=== PATIENT | female | born 1965 | race Caucasian/White ===

== ENCOUNTER 2017-11-18 14:59 | Day surgery (SDC) | payer SELFPAY ==
[~2017-11-18] VITALS: Ht 165.1 cm; Wt 62.1 kg
[~2017-11-18 14:59] MED LIST: CHOL10007 PO; CYAN500T2 PO; OMG1KC PO; PARO-49 PO
[2017-11-18] MEDS ORDERED: LACTATED RINGERS 1,000 ML IV ONE (15:19)
[2017-11-18] MEDS ORDERED: KETOROLAC 30 MG/ML VIAL IVP STA (15:19)
[2017-11-18 15:24] LABS: BASOPHILS % (AUTO) 0 % (0-10); EOSINOPHILS # (AUTO) 0.1 10^3/uL (0.0-0.3); EOSINOPHILS % (AUTO) 2 % (0-10); HEMATOCRIT 39 % (35-52); HEMOGLOBIN 13.6 G/DL (11.5-16.0); LYMPHOCYTES # (AUTO) 1.7 X 10^3 (1.0-4.0); LYMPHOCYTES % (AUTO) 24 % (12-44); MEAN CORPUSCULAR HEMOGLOBIN 32 PG (25-34); MEAN CORPUSCULAR HGB CONC 35 G/DL (32-36); MEAN CORPUSCULAR VOLUME 93 FL (80-99); MEAN PLATELET VOLUME 9.6 FL (7.4-10.4); MONOCYTES # (AUTO) 0.6 X 10^3 (0.0-1.0); MONOCYTES % (AUTO) 9 % (0-12); NEUTROPHILS # (AUTO) 4.6 X 10^3 (1.8-7.8); NEUTROPHILS % (AUTO) 66 % (42-75); PLATELET COUNT 219 10^3/uL (130-400); RED BLOOD COUNT 4.25 10^6/uL (4.35-5.85); RED CELL DISTRIBUTION WIDTH 13.7 % (10.0-14.5)
[2017-11-18 15:25] LABS: BILIRUBIN,URINE NEGATIVE (NEGATIVE); CLARITY,URINE CLEAR; COLOR,URINE YELLOW; GLUCOSE, URINE (UA) NEGATIVE (NEGATIVE); KETONES,URINE NEGATIVE (NEGATIVE); LEUKOCYTE ESTERASE ,URINE NEGATIVE (NEGATIVE); NITRITE,URINE NEGATIVE (NEGATIVE); PH,URINE 5 (5-9); PROTEIN,URINE NEGATIVE (NEGATIVE); UROBILINOGEN,URINE NORMAL (NORMAL)
[2017-11-18] MEDS ORDERED: IOHEXOL 350 MG/ML 100 ML (OMNIPAQUE 350) VIAL IV ONE (15:30)
[2017-11-18] MEDS ORDERED: NS 100 ML (IVPB) BAG IV ONE (15:30)
--- NOTE | 2017-11-18 15:30 | ED Abdominal Pain ---
General Chief Complaint: Abdominal/GI Problems Stated Complaint: RT SIDED ABD PAIN, BLOATING Nursing Triage Note: PATIENT HERE FOR COMPLAINTS OF ABDOMINAL PAIN THAT STARTED SUDDENLY YESTERDAY AFTERNOON. IT IS LOCATED SPECIFICALLY ON THE RLQ. PATIENT COMPLAINS OF FEELING BLOATED BUT NOT DIARRHEA, N/V. NO FEVERS. SHE HAS HX OF DIVERTICULITIS AND STILL HAS HER APPENDIX. Sepsis Screen: No Definite Risk Source of Information: Patient Exam Limitations: No Limitations History of Present Illness Date Seen by Provider: Nov 18, 2017 Time Seen by Provider: 15:05 Initial Comments PT ARRIVES VIA POV FROM HOME C/O RLQ PAIN SINCE YESTERDAY PAIN IS CONSTANT AND IS WORSE WITH WALKING, LAYING ON RIGHT SIDE OR TO TOUCH STATES ABDOMEN FEELS BLOATED NO RADIATION OF PAIN NO NAUSEA/VOMITING/DIARRHEA/CONSTIPATION NO FEVER NO URINARY SYMPTOMS NO HISTORY OF SIMILAR LAST FOOD INTAKE WAS OATMEAL THIS MORNING PCP: DR. Cachorro CARTER Allergies and Home Medications Allergies Coded Allergies: No Known Drug Allergies (Unverified , 04/09/15) Home Medications Fluoxetine HCl 20 Mg Capsule, 20 MG PO DAILY Prescribed by: LEVY WELLINGTON on 11/18/171807 [i] , DAILY Prescribed by: LEVY WELLINGTON on 11/18/171810 Patient Home Medication List Home Medication List Reviewed: Yes Review of Systems Constitutional: no symptoms reported EENTM: No Symptoms Reported Respiratory: No Symptoms Reported Cardiovascular: No Symptoms Reported Gastrointestinal: See HPI, Abdominal Pain; Denies Constipated, Denies Diarrhea , Denies Nausea, Denies Vomiting Genitourinary: No Symptoms Reported Musculoskeletal: no symptoms reported Skin: no symptoms reported Psychiatric/Neurological: No Symptoms Reported Endocrine: No Symptoms Reported Hematologic/Lymphatic: No Symptoms Reported Past Scujyxd-Vnhbuq-Tmomlt Hx Patient Social History Alcohol Use: Regular Use (IN PAST, NOW CLAIMS "OCCASIONAL" USE--HEAVY AT TIMES- -PER PT ON 11/18/17) Recreational Drug Use: No Smoking Status: Current Someday Smoker (SMOKED 1/2 PPD, NOW DOES NOT SMOKE EVERY DAY) Type Used: Cigarettes Former Smoker, Quit: Jun 23, 2015 2nd Hand Smoke Exposure: Yes Recent Foreign Travel: No Contact w/Someone Who Travel: No Recent Infectious Disease Expo: No Immunizations Up To Date Tetanus Booster (TDap): Unknown Past Medical History Surgeries: Yes (BREAST AUGMENTATION; HYST/BSO; COLONOSCOPY) Adenoidectomy, Breast, Hysterectomy, Oophorectomy, Tonsillectomy Respiratory: Yes Pneumonia, COPD Currently Using CPAP: No Currently Using BIPAP: No Cardiac: No Neurological: Yes ("sjogren's disease"=---SELF DIAGNOSIS) 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 Genitourinary: No Gastrointestinal: Yes (DIVERTICULOSIS FOUND ON SCREENING COLONOSCOPY--HAS NEVER HAD ACUTE DIVERTICULITIS) Diverticulosis Musculoskeletal: No Endocrine: Yes ("autoimmune disease"--SELF DIAGNOSIS) Cancer: No Psychosocial: Yes Anxiety, Suicide Attempts, Depression Integumentary: No Blood Disorders: No Family Medical History Cardiovascular disease 19 FATHER (a-fib, chf) Diabetes mellitus 19 FATHER (obesity) Hypertension 19 FATHER Physical Exam Vital Signs Vital Signs - First Documented 11/18/17 15:05 Temp 97.6 Pulse 73 Resp 18 B/P (MAP) 100/76 (84) Pulse Ox 97 Capillary Refill : Less Than 3 Seconds Height/Weight/BMI Height: 5'5.00" Weight: 130lbs. 0oz. 58.121770di; 22.5 BMI Method:Stated General Appearance: WD/WN, no apparent distress, other (FULL/HEAVY MAKEUP AND PERFUME; WALKS UPRIGHT WITHOUT DIFFICULTY) Neck: normal inspection Respiratory: normal breath sounds, no respiratory distress, no accessory muscle use Cardiovascular: regular rate, rhythm, no edema, no JVD, no murmur Gastrointestinal: normal bowel sounds, soft, no organomegaly, no pulsatile mass ; No distended; guarding (MILD/RLQ), rebound (EQUIVOCAL), tenderness (RLQ); No hernia, No mass; other (+ PSOAS, NEGATIVE HEEL TAP, NEGATIVE ROVSING'S, EQUIVOCAL OBTURATOR) Extremities: normal inspection, normal capillary refill Back: normal inspection, no CVA tenderness Neurologic/Psychiatric: tile setter II-XII nml as tested, no motor/sensory deficits, alert, normal mood/affect, oriented x 3 Skin: normal color, warm/dry, tattoos/piercings Procedures/Interventions Suture Size: 6-0 Progress/Results/Core Measures Results/Orders Lab Results Laboratory Tests Test 11/18/17 15:15 Range/Units White Blood Count 7.0 4.3-11.0 10^3/uL Red Blood Count 4.25 L 4.35-5.85 10^6/uL Hemoglobin 13.6 11.5-16.0 G/DL Hematocrit 39 35-52 % Mean Corpuscular Volume 93 80-99 FL Mean Corpuscular Hemoglobin 32 25-34 PG Mean Corpuscular Hemoglobin Concent 35 32-36 G/DL Red Cell Distribution Width 13.7 10.0-14.5 % Platelet Count 219 130-400 10^3/uL Mean Platelet Volume 9.6 7.4-10.4 FL Neutrophils (%) (Auto) 66 42-75 % Lymphocytes (%) (Auto) 24 12-44 % Monocytes (%) (Auto) 9 0-12 % Eosinophils (%) (Auto) 2 0-10 % Basophils (%) (Auto) 0 0-10 % Neutrophils # (Auto) 4.6 1.8-7.8 X 10^3 Lymphocytes # (Auto) 1.7 1.0-4.0 X 10^3 Monocytes # (Auto) 0.6 0.0-1.0 X 10^3 Eosinophils # (Auto) 0.1 0.0-0.3 10^3/uL Basophils # (Auto) 0.0 0.0-0.1 10^3/uL Urine Color YELLOW Urine Clarity CLEAR Urine pH 5 5-9 Urine Specific [place] 1.020 1.016-1.022 Urine Protein NEGATIVE NEGATIVE Urine Glucose (UA) NEGATIVE NEGATIVE Urine Ketones NEGATIVE NEGATIVE Urine Nitrite NEGATIVE NEGATIVE Urine Bilirubin NEGATIVE NEGATIVE Urine Urobilinogen NORMAL NORMAL MG/DL Urine Leukocyte Esterase NEGATIVE NEGATIVE Urine RBC (Auto) NEGATIVE NEGATIVE Urine RBC NONE /HPF Urine WBC NONE /HPF Urine Squamous Epithelial Cells RARE /HPF Urine Crystals NONE /LPF Urine Bacteria NEGATIVE /HPF Urine Casts NONE /LPF Urine Mucus NEGATIVE /LPF Urine Culture Indicated NO Sodium Level 139 135-145 MMOL/L Potassium Level 4.2 3.6-5.0 MMOL/L Chloride Level 104 98-107 MMOL/L Carbon Dioxide Level 26 21-32 MMOL/L Anion Gap 9 5-14 MMOL/L Blood Urea Nitrogen 23 H 7-18 MG/DL Creatinine 0.79 0.60-1.30 MG/DL Estimat Glomerular Filtration Rate > 60 BUN/Creatinine Ratio 29 Glucose Level 99 70-105 MG/DL Calcium Level 9.4 8.5-10.1 MG/DL Total Bilirubin 0.3 0.1-1.0 MG/DL Aspartate Amino Transf (AST/SGOT) 19 5-34 U/L Alanine Aminotransferase (ALT/SGPT) 16 0-55 U/L Alkaline Phosphatase 75 40-136 U/L Total Protein 7.1 6.4-8.2 GM/DL Albumin 4.4 3.2-4.5 GM/DL Amylase Level 75 25-125 U/L Lipase 44 8-78 U/L Urine Opiates Screen NEGATIVE NEGATIVE Urine Oxycodone Screen NEGATIVE NEGATIVE Urine Methadone Screen NEGATIVE NEGATIVE Urine Propoxyphene Screen NEGATIVE NEGATIVE Urine Barbiturates Screen NEGATIVE NEGATIVE Ur Tricyclic Antidepressants Screen NEGATIVE NEGATIVE Urine Phencyclidine Screen NEGATIVE NEGATIVE Urine Amphetamines Screen NEGATIVE NEGATIVE Urine Methamphetamines Screen NEGATIVE NEGATIVE Urine Benzodiazepines Screen NEGATIVE NEGATIVE Urine Cocaine Screen NEGATIVE NEGATIVE Urine Cannabinoids Screen NEGATIVE NEGATIVE Serum Alcohol < 10 <10 MG/DL My Orders Orders - DODIE SILVA DO Saline Lock/Iv-Start (11/18/17 15:06) Amylase (11/18/17 15:06) Cbc With Automated Diff (11/18/17 15:06) Comprehensive Metabolic Panel (11/18/17 15:06) Lipase (11/18/17 15:06) Ua Culture If Indicated (11/18/17 15:06) Alcohol (11/18/17 15:19) Drug Screen Stat (Urine) (11/18/17 15:19) Ct Abd/Pelv W (Appendicitis) (11/18/17 15:19) Abdomen, Flat & Upright/Decub (11/18/17 15:19) Saline Lock/Iv-Start (11/18/17 15:19) Lactated Ringers (Lr 1000 Ml Iv Solution (11/18/17 15:19) Ketorolac Injection (Toradol Injection) (11/18/17 15:19) Iohexol Injection (Omnipaque 350 Mg/Ml 1 (11/18/17 15:30) Ns (Ivpb) (Sodium Chloride 0.9% Ivpb Bag (11/18/17 15:30) Medications Given in ED Current Medications Medications Dose Ordered Sig/Marine Route Start Time Stop Time Status Last Admin Dose Admin Iohexol 100 ml ONCE ONCE IV 11/18/17 15:30 11/18/17 15:33 DC 11/18/17 15:54 100 ML Lactated Ringer's 1,000 ml @ 0 mls/hr Q0M ONCE IV 11/18/17 15:19 11/18/17 15:22 DC 11/18/17 15:30 0 MLS/HR Sodium Chloride 100 ml ONCE ONCE IV 11/18/17 15:30 11/18/17 15:33 DC 11/18/17 15:54 100 ML Vital Signs/I&O 11/18/17 15:05 Temp 97.6 Pulse 73 Resp 18 B/P (MAP) 100/76 (84) Pulse Ox 97 Blood Pressure Mean: 84 Progress Progress Note : Progress Note MINIMAL IMPROVEMENT IN PAIN WITH TORADOL MODERATE IMPROVEMENT WITH FENTANYL NO DETERIORATION IN PT'S CONDITION DURING ER STAY Diagnostic Imaging Comments ABDOMEN XRAYS--NO ACUTE PROCESS CT ABDOMEN/PELVIS--INFLAMMATORY CHANGES IN AREA OF CECUM, APPENDIX WITHOUT GROSS WALL THICKENING, CONSTIPATION PER RADIOLOGIST REPORTS AT 1625 Reviewed: Reviewed by Me Departure Communication (Admissions) Family Conversation 1628--SPOKE WITH DR. GARCIA, ACCEPTS PT FOR ADMIT. ADVISES IV CIPRO + FLAGYL. AND HE WILL TAKE TO SURGERY TOMORROW AT 10 AM Impression Primary Impression: Appendicitis Disposition: 09 ADMITTED INPATIENT Condition: Stable Admissions Decision to Admit Reason: Admit from ER (General) Decision to Admit/Date: Nov 18, 2017 Time/Decision to Admit Time: 16:30 Departure-Patient Inst. Referrals: DODIE CARTER MD (PCP/Family) Primary Care Physician Scripts [Mvi] No Conflict Check DAILY for 30 Days Prov: MARILU GARCIA MD 11/18/17 Fluoxetine HCl (Prozac) 20 Mg Capsule 20 MG PO DAILY, #30 CAP Prov: MARILU GARCIA MD 11/18/17 DODIE SILVA DO Nov 18, 2017 15:30
[2017-11-18 15:32] LABS: BACTERIA,URINE NEGATIVE /HPF; SQUAMOUS EPITHELIAL CELL,UR RARE /HPF
[2017-11-18 15:40] LABS: AMPHETAMINE SCREEN, URINE NEGATIVE (NEGATIVE); BARBITURATE SCREEN URINE NEGATIVE (NEGATIVE); BENZODIAZEPINES SCREEN URINE NEGATIVE (NEGATIVE); CANNABINOID SCREEN, URINE NEGATIVE (NEGATIVE); COCAINE SCREEN URINE NEGATIVE (NEGATIVE); METHADONE STAT NEGATIVE (NEGATIVE); METHAMPHETAMINE SCREEN URINE S NEGATIVE (NEGATIVE); OPIATE SCREEN URINE NEGATIVE (NEGATIVE); OXYCODONE STAT NEGATIVE (NEGATIVE); PROPOXYPHENE STAT NEGATIVE (NEGATIVE); TRICYCLIC ANTIDEPRESSANTS SCRE NEGATIVE (NEGATIVE)
[2017-11-18 15:45] LABS: ALANINE AMINOTRANSFERASE 16 U/L (0-55); ALBUMIN 4.4 GM/DL (3.2-4.5); ALKALINE PHOSPHATASE 75 U/L (40-136); AMYLASE 75 U/L (25-125); BILIRUBIN,TOTAL 0.3 MG/DL (0.1-1.0); BUN/CREATININE RATIO 29; CALCIUM 9.4 MG/DL (8.5-10.1); CARBON DIOXIDE 26 MMOL/L (21-32); CHLORIDE 104 MMOL/L (98-107); CREATININE SERUM 0.79 MG/DL (0.60-1.30); GFR ESTIMATED > 60; GLUCOSE 99 MG/DL (70-105); LIPASE 44 U/L (8-78); POTASSIUM 4.2 MMOL/L (3.6-5.0); SODIUM 139 MMOL/L (135-145); TOTAL PROTEIN 7.1 GM/DL (6.4-8.2)
--- NOTE | 2017-11-18 16:22 | Diagnostic Imaging Report ---
PROCEDURE: CT abdomen and pelvis with contrast, rule out appendicitis. TECHNIQUE: Multiple contiguous axial images were obtained through the abdomen and pelvis after the administration of intravenous contrast. INDICATION: Right lower quadrant pain and bloating. COMPARISON: No prior studies are available for comparison. FINDINGS: The lung bases are clear. Liver contains small low densities, suggestive of cysts. The largest is in the right lobe posteriorly, measuring 13 mm. Gallbladder is unremarkable. Pancreas and spleen are unremarkable. No adrenal mass is identified. There is a large cyst in the lower pole left kidney, measuring 5.9 cm. Aorta is non-aneurysmal. There is a large amount of stool throughout the colon suggestive of constipation. There do appear to be some inflammatory changes in the right lower quadrant in the region of the cecum. The appendix, itself, does not appear to be appreciably thick walled. Bowel loops are fluid-filled but no definite obstruction is seen. There is no free fluid or fluid collection in the abdomen. Bladder is unremarkable. IMPRESSION: 1. Hepatic and renal cysts. 2. Moderate stool in the colon consistent with constipation. 3. There does appear to be some mild inflammatory changes involving the right lower quadrant adjacent to the descending colon and cecum. The appendix does not appear to be appreciably thickwalled or dilated. Features may be secondary to nonspecific colitis. No definite bowel obstruction, free air or abscess is seen. Dictated by: Dictated on workstation # [id number]
[2017-11-18] MEDS ORDERED: fentaNYL INJECTION 100 MCG/2 ML AMP IVP STA (16:34)
--- NOTE | 2017-11-18 16:38 | Diagnostic Imaging Report ---
INDICATION: Right lower quadrant pain. TIME OF EXAM: 4:34 p.m. FINDINGS: Contrast is seen within both renal collection systems and ureters. Bowel gas pattern is nonobstructive. There is a large stool load consistent with constipation. No definite free air is seen. IMPRESSION: Constipation. No other abnormality seen. Dictated by: Dictated on workstation # [id number]
[2017-11-18] MEDS ORDERED: metroNIDAZOLE 500MG/100ML IVPB 100 ML IV ONE (16:45)
--- NOTE | 2017-11-18 17:02 | Progress Note-Pre Operative ---
Pre-Operative Progress Note H&P Reviewed The H&P was reviewed, patient examined and no changes noted. Date Seen by Provider: Nov 18, 2017 Time Seen by Provider: 17:00 Date H&P Reviewed: Nov 18, 2017 Time H&P Reviewed: 17:00 Pre-Operative Diagnosis: right lower quadrant pain r/o appendicitis MARILU GARCIA MD Nov 18, 2017 5:02 pm
[2017-11-18 17:20] VITALS: BP 109/86
[2017-11-18] MEDS ORDERED: FLUO20CA42 PO (18:08)
[2017-11-18] MEDS ORDERED: MVI (18:11)
[2017-11-18] MEDS ORDERED: ASPI325T32 PO (18:12)
[2017-11-18] MEDS ORDERED: fentaNYL INJECTION 100 MCG/2 ML AMP IVP PRN (18:15)
[2017-11-18] MEDS: CIPROFLOXACIN IV 400MG/200ML 200 ML IV SCH ×3 (18:17→20:51)
[2017-11-18] MEDS: D5 1/2 NS W/KCL 20 MEQ/L 1,000 ML IV SCH (18:17)
[2017-11-18 19:38] VITALS: BP 105/68
[2017-11-18] MEDS: metroNIDAZOLE 500MG/100ML IVPB 100 ML IV SCH ×3 (20:50→23:55)
[2017-11-18] MEDS ORDERED: ONDANSETRON 4 MG/2 ML (SDV) Z0FRAN IV PRN (21:00)
[2017-11-19] VITALS: BP 81/42
[2017-11-19] MEDS: metroNIDAZOLE 500MG/100ML IVPB 100 ML IV SCH ×2 (00:53→06:34)
[2017-11-19 04:00] VITALS: BP 91/53
[2017-11-19] MEDS: D5 1/2 NS W/KCL 20 MEQ/L 1,000 ML IV SCH (04:28)
[2017-11-19 08:00] VITALS: BP 106/57
[2017-11-19 08:30] VITALS: BP 106/57
[2017-11-19] MEDS: CIPROFLOXACIN IV 400MG/200ML 200 ML IV SCH ×2 (08:57→09:55)
[2017-11-19] MEDS ORDERED: BUP/EPI 0.5% 1:200,000 (SENSORCAINE) 30 ML VIAL ONE (09:31)
[2017-11-19] MEDS ORDERED: MIDAZOLAM 2 MG/2 ML (VERSED) VIAL ONE (09:45)
[2017-11-19] MEDS ORDERED: fentaNYL INJECTION 100 MCG/2 ML AMP ONE (09:45)
[2017-11-19] MEDS: LACTATED RINGERS 1,000 ML IV SCH ×2 (09:55→10:45)
[2017-11-19] MEDS ORDERED: morphine INJ 10 MG/ML 1ML (SYR OR VIAL) ONE (10:47)
[2017-11-19] MEDS ORDERED: ROCURONIUM 10 MG/ML 5 ML SYRINGE IV ONE (11:11)
[2017-11-19] MEDS ORDERED: proPOfol 200 MG/20 ML (DIPRIVAN) VIAL IV ONE (11:11)
[2017-11-19] MEDS ORDERED: LIDOCAINE PF 2% 5 ML (XYLOCAINE) VIAL ONE (11:11)
[2017-11-19] MEDS ORDERED: DEXAMETHASONE 10 MG/ML (DECADRON) 1 ML VIAL ONE (11:12)
[2017-11-19] MEDS ORDERED: ONDANSETRON 4 MG/2 ML (SDV) Z0FRAN ONE (11:12)
--- NOTE | 2017-11-19 11:12 | Progress Note-Post Operative ---
Post-Operative Progess Note Surgeon (s)/Housekeeper (s) Surgeon MARILU GARCIA MD Housekeeper: kathy olson AIRCRAFT SYSTEMS REPAIRER Pre-Operative Diagnosis right lower quadrant pain r/o appendicitis Post-Operative Diagnosis acute appendicitis. Procedure & Operative Findings Date of Procedure 11/19/17 Procedure Performed/Findings laparoscopic appendectomy Anesthesia Type GET Estimated Blood Loss Estimated blood loss (mL): minimal Specimens/Packing Specimens Removed appendix MARILU GARCIA MD Nov 19, 2017 11:12 am
[2017-11-19] MEDS ORDERED: SEVOFLURANE (ULTANE) 15 ML INHAL SOLN ONE ×5 (11:13→11:25)
[2017-11-19] MEDS ORDERED: HYDR-34 PO (11:15)
--- NOTE | 2017-11-19 11:18 | Discharge Inst-Surgical ---
D/C Lap Instructions-RADHA New, Converted, or Re-Newed RX: RX on Chart Follow Up Appt in 2 weeks Activity as tolerated No driving for 24 hours No driving while on pain medications Incentive Spirometry use every 2 hours while awake Regular Diet Symptoms to Report: Fever over 101 degree F, Nausea/Vomiting Infection Signs and Symptoms to report: Increased redness, Foul odor of wound, Increased drainage Bathing instructions: May shower Operative Area Clean/Dry; Keep incision clean/dry If any problems/questions: Contact your physician or go to Emergency Room MARILU GARCIA MD Nov 19, 2017 11:18 am
--- NOTE | 2017-11-19 11:22 | HISTORY AND PHYSICAL ---
DATE OF SERVICE: ATTENDING PRIMARY CARE PHYSICIAN: Ursula Horton MD. HISTORY OF PRESENT ILLNESS: The patient is a 52 female who presented to the Emergency Department with pain more in the right lower abdominal quadrant. She reports that this came on suddenly and this was not associated with nausea. No vomiting, no fever, no chills. She has had a history of diverticulosis as well as mild diverticulitis in the past; however, these symptoms were different and in a different location. A CT scan was performed, which did show stool within the colon; however, there did appear to be a small amount of inflammation near the appendix consistent with an early appendicitis. PAST MEDICAL HISTORY: Depression. PAST SURGICAL HISTORY: Total hysterectomy, tonsillectomy, breast augmentation. ALLERGIES: No known drug allergies. MEDICATIONS: Fluoxetine 20 mg daily. SOCIAL HISTORY: Social alcohol, social smoking. REVIEW OF SYSTEMS: Well-nourished female currently in no acute distress. She is not experiencing any shortness of breath or difficulty breathing. No chest pain, palpitations, diaphoresis. No nausea, vomiting, history of constipation, no red blood per rectum, no dark tarry stools. No fever, chills. No recent inadvertent weight loss. All other review of systems negative. PHYSICAL EXAMINATION: VITAL SIGNS: Temperature 97.6, blood pressure 100/76, pulse 73, respirations 18, pulse ox 97% on room air. CHEST: Clear. Good breath sounds bilaterally. HEART: Regular. No murmurs. HEENT: No scleral icterus. NECK: No cervical lymphadenopathy. ABDOMEN: Soft, nondistended. There is pain in the right lower abdominal quadrant at McBurney's point upon palpation with voluntary guarding, no rebound. SKIN: Warm, dry. ASSESSMENT AND PLAN: A 52-year-old female with early acute appendicitis. We will proceed with IV hydration, IV antibiotics as well as diagnostic laparoscopy and laparoscopic appendectomy. Job ID: [id number] DocumentID: [id number] Dictated Date: 11/19/2017 10:36:15 Camera Technician Date: 11/19/2017 11:22:04 Dictated By: MARILU GARCIA MD
[2017-11-19] MEDS: morphine INJ 10 MG/ML 1ML (SYR OR VIAL) IVP PRN ×3 (11:41→11:57)
[2017-11-19] MEDS ORDERED: KETOROLAC 30 MG/ML VIAL ONE (11:41)
[2017-11-19] MEDS ORDERED: HYDROcodone/APAP 7.5 MG/325 MG (LORTAB, LORCET PLUS) TABLET PO PRN (11:45)
[2017-11-19] MEDS ORDERED: ONDANSETRON 4 MG/2 ML (SDV) Z0FRAN IVP PRN (12:00)
[2017-11-19] MEDS ORDERED: HYDROmorphone 1 MG/ML (DILAUDID) 1 ML SYRINGE IV PRN (12:00)
[2017-11-19 12:39] VITALS: BP 107/63
[2017-11-19 15:39] VITALS: BP 107/63
--- NOTE | 2017-11-19 15:57 | OPERATIVE REPORT ---
DATE OF SERVICE: 11/19/2017 ATTENDING PRIMARY CARE PHYSICIAN: Ursula Horton MD PREOPERATIVE DIAGNOSIS: Acute appendicitis. POSTOPERATIVE DIAGNOSIS: Acute appendicitis. PROCEDURE: Laparoscopic appendectomy. SURGEON: Marilu Garcia MD FIRER GLOST KILN: Khanh Colin APRN ANESTHESIA: General endotracheal. ESTIMATED BLOOD LOSS: Minimal. FINDINGS: Inflammation of the appendix with no perforation. Gallbladder and liver appeared normal. DISPOSITION: The patient tolerated the procedure well. INDICATIONS: The patient is a 52-year-old female, who presented to the Emergency Department with pain of acute onset in the right lower abdominal quadrant. She has had some abdominal discomfort before in the past related to a mild episode of diverticulitis; however, this pain was different and more severe in nature. She did not report any nausea, no vomiting or fever or chills. A CT scan was performed, which did not visualize the appendix well; however, she did have inflammatory stranding in the region at the base of the cecum, most likely consistent with an early appendicitis. DESCRIPTION OF PROCEDURE: The patient was brought to the operating room, laid supine on the table. After adequate IV pain and sedative medications and general endotracheal intubation, the abdomen was prepped and draped in standard surgical fashion. A 0.5% Marcaine with epinephrine was used to anesthetize the overlying skin in the left upper abdominal quadrant and a transverse skin incision made using a 15 blade. An 0 silk suture was applied to the medial aspect of the incision for retraction and a Veress needle inserted with a low opening pressure of 0 mmHg and the abdomen was then insufflated at 15 mmHg pressure. The Veress needle removed and a 5 mm XL trocar placed followed by a 5 mm 45 degree angle laparoscope visualizing the peritoneal cavity. A 4-quadrant abdominal exploration was performed. The liver and gallbladder appeared normal. The uterus and ovaries were surgically absent. The appendix was slightly inflamed with increased turgor pressure; however, no perforation. Under direct visualization, we then proceeded to place a supraumbilical 10 mm port after the skin and peritoneal lining were anesthetized using 0.5% Marcaine with epinephrine and a transverse skin incision made using a 15 blade. In a similar manner, a suprapubic 5 mm port was placed. The patient was then placed in Trendelenburg position. The appendix was then retracted towards the anterior abdominal wall and a window was then created at the base of the appendix and the mesoappendix using a [place] dissector. The gallbladder was then stapled and transected with a TAVIA 45 mm stapler with a 2.5 mm thickness load. The mesoappendix was then stapled and transected with the same stapler with a 2.0 mm thickness reload. Good hemostasis was observed. The appendix was removed through the 10 mm port site using an EndoCatch bag. The 10 mm port site fascia and peritoneum were then closed under direct visualization using a Joey-Frida device and 0 Vicryl suture. The abdomen was desufflated and remaining ports removed. All skin incisions were closed using 4-0 Monocryl running subcuticular sutures. Wounds were then cleaned and covered with Dermabond. The patient tolerated the procedure well. We will admit her back to the floor and start clear liquid diet and advance as well as IV and oral pain medication. Once she is tolerating clears, has good pain control with oral pain medications and ambulating well, we will discharge her home. Job ID: [id number] DocumentID: [id number] Dictated Date: 11/19/2017 11:37:20 Migrant Leader Date: 11/19/2017 15:56:18 Dictated By: MARILU GARCIA MD
--- NOTE | 2017-11-20 12:11 | Anesthesia-General Post-Op ---
General Patient Condition Mental Status/LOC: Same as Preop Cardiovascular: Satisfactory Nausea/Vomiting: Absent Respiratory: Satisfactory Pain: Controlled Complications: Absent Post Op Complications Complications None Follow Up Care/Instructions Patient Instructions None needed. Anesthesia/Patient Condition Patient Condition Patient is doing well, no complaints, stable vital signs, no apparent adverse anesthesia problems. No complications reported per nursing. MAGGI FLETCHER CRNA Nov 20, 2017 12:11
--- NOTE | 2017-11-22 11:51 | Physician Query-Final Dx ---
HIRO RODRIGUES 11/22/17 1151: Final Diagnosis Give Final Diagnosis Please give Final Diagnosis MARILU GARCIA MD 11/22/17 1602: Final Diagnosis Give Final Diagnosis acute appendicitis HIRO RODRIGUES Nov 22, 2017 11:51 MARILU GARCIA MD Nov 22, 2017 16:02
== END 2017-11-19 15:35 | disposition home or self-care (01) ==
LOC: EDUNIT# 14:59 → ER 15:01 → UNDOADMIN 16:28 → SDC 16:28 → 4TH 16:28 → SDC 11-19 15:35 → UNDODISIN 11-19 15:35
PROVIDERS: ATTEND Surgery
DX: K35.80 Unspecified acute appendicitis (principal); J44.9 Chronic obstructive pulmonary disease, unspecified; F32.9 Major depressive disorder, single episode, unspecified; F17.210 Nicotine dependence, cigarettes, uncomplicated; Z79.82 Long term (current) use of aspirin; Z79.899 Other long term (current) drug therapy
CPT/HCPCS: 36415; 74019; 74177; 80053; 80306; 80320; 81000; 82150; 83690; 85025; 87081; 94664; 96374; 96375

== ENCOUNTER 2018-07-09 09:42 | Emergency (ER) | payer SELFPAY ==
[~2018-07-09] VITALS: Ht 165.1 cm; Wt 61.2 kg
[~2018-07-09 09:42] MED LIST changes: +ASPI325T32 PO; +FLUO20CA42 PO; +HYDR-34 PO; +MVI
[2018-07-09 09:45] VITALS: BP 132/82
[2018-07-09 10:00] LABS: BASOPHILS % (AUTO) 1 % (0-10); EOSINOPHILS # (AUTO) 0.1 10^3/uL (0.0-0.3); EOSINOPHILS % (AUTO) 2 % (0-10); HEMATOCRIT 44 % (35-52); HEMOGLOBIN 14.5 G/DL (11.5-16.0); LYMPHOCYTES # (AUTO) 1.2 X 10^3 (1.0-4.0); LYMPHOCYTES % (AUTO) 24 % (12-44); MEAN CORPUSCULAR HEMOGLOBIN 31 PG (25-34); MEAN CORPUSCULAR HGB CONC 33 G/DL (32-36); MEAN CORPUSCULAR VOLUME 94 FL (80-99); MEAN PLATELET VOLUME 9.6 FL (7.4-10.4); MONOCYTES # (AUTO) 0.4 X 10^3 (0.0-1.0); MONOCYTES % (AUTO) 7 % (0-12); NEUTROPHILS # (AUTO) 3.3 X 10^3 (1.8-7.8); NEUTROPHILS % (AUTO) 66 % (42-75); PLATELET COUNT 234 10^3/uL (130-400); RED CELL DISTRIBUTION WIDTH 13.9 % (10.0-14.5); WHITE BLOOD COUNT 4.9 10^3/uL (4.3-11.0)
[2018-07-09] MEDS ORDERED: ASPIRIN 81 MG CHEW (CHILDREN'S ASA) PO ONE (10:00)
[2018-07-09] MEDS ORDERED: NITROGLYCERIN 0.4 MG SL TABS BTL 25'S SL PRN (10:00)
--- OUTSIDE RECORDS SUMMARY | 2018-07-09 10:13 | XMS REPORT ---
Author SKY Aquino [facility] eClinicalWorks Address Unknown Phone Unavailable Care Team Providers Care Auto Service Advisor Name Role Phone SKY ALICIA CP Unavailable Allergies, Adverse Reactions, Alerts Substance Reaction Event Type PredniSONE Headaches, Angry and Increased Appetite Drug Allergy Problems Problem Type Condition Code Onset Dates Condition Status Problem Previous known suicide attempt Z91.5 Active Assessment Pain in joints of right hand M25.541 Active Problem Dry eye H04.129 Active Assessment Alopecia L65.9 Active Assessment Dry eye H04.129 Active Assessment Pain in joints of left hand M25.542 Active Assessment Dry mouth R68.2 Active Medications No Known Medications Procedures Procedure Coding System Code Date COMPLETE CBC W/AUTO DIFF WBC CPT-4 43446 Feb 18, 2016 RBC SED RATE, AUTOMATED CPT-4 39393 Feb 18, 2016 ASSAY THYROID STIM HORMONE CPT-4 67102 Feb 18, 2016 Office Visit, New Pt., Level 3 CPT-4 68887 Feb 18, 2016 VENIPUNCT, ROUTINE* CPT-4 65287 Feb 18, 2016 MICROALBUMIN, QUANTITATIVE CPT-4 91425 Feb 18, 2016 ASSAY OF URINE CREATININE CPT-4 42136 Feb 18, 2016 COMPREHEN METABOLIC PANEL CPT-4 72606 Feb 18, 2016 ANTINUCLEAR ANTIBODIES CPT-4 14997 Feb 18, 2016 Vital Signs Date/Time: Feb 18, 2016 Cardiac Monitoring Heart Rate 70 bpm Weight 133 lbs Height 65 in BMI 22.13 Index Blood Pressure Diastolic 70 mmHg Blood Pressure Systolic 100 mmHg Results Name Result Date Reference Range Unit Abnormality Flag CBC ----Lymphs 17 72257410 % ----Neutrophils 75 50215972 % ----Baso (Absolute) 0.0 [id number] 0.0-0.2 x10E3/uL ----Hemoglobin 13.8 24385500 11.1-15.9 g/dL ----Eos (Absolute) 0.1 [id number] 0.0-0.4 x10E3/uL ----Hematocrit 39.8 67913181 34.0-46.6 % ----Monocytes(Absolute) 0.4 81588672 0.1-0.9 x10E3/uL ----MCV 91 [id number] 79-97 fL ----Lymphs (Absolute) 1.3 [id number] 0.7-3.1 x10E3/uL ----MCH 31.5 [id number] 26.6-33.0 pg ----Neutrophils (Absolute) 5.6 57906458 1.4-7.0 x10E3/uL ----MCHC 34.7 93773784 31.5-35.7 g/dL ----Immature Granulocytes 0 55262982 % ----Basos 0 46016412 % ----RDW 13.5 35744921 12.3-15.4 % ----Immature Grans (Abs) 0.0 [id number] 0.0-0.1 x10E3/uL ----WBC 7.5 12548211 3.4-10.8 x10E3/uL ----Platelets 221 88389284 150-379 x10E3/uL ----Eos 2 72036746 % ----RBC 4.38 [id number] 3.77-5.28 x10E6/uL ----Monocytes 6 05538771 % ESR/SED RATE ----Sedimentation Rate-Westergren 5 [id number] 0-40 mm/hr ROUTINE VENIPUNCTURE TSH ----TSH 1.190 [id number] 0.450-4.500 uIU/mL VINICIO ----Antinuclear Antibodies, IFA Negative [id number] CMP ----Creatinine, Serum 0.83 13796951 0.57-1.00 mg/dL ----BUN 14 82408706 6-24 mg/dL ----eGFR If Africn Am 94 [id number] >59 mL/min/1.73 ----eGFR If NonAfricn Am 82 17353773 >59 mL/min/1.73 ----Sodium, Serum 141 65579947 134-144 mmol/L ----BUN/Creatinine Ratio 17 12600458 9-23 ----Chloride, Serum 100 39535666 97-108 mmol/L ----Potassium, Serum 4.3 59525615 3.5-5.2 mmol/L ----Carbon Dioxide, Total 27 95021772 18-29 mmol/L ----Protein, Total, Serum 6.4 91767074 6.0-8.5 g/dL ----Calcium, Serum 9.2 68045181 8.7-10.2 mg/dL ----Globulin, Total 2.1 55470155 1.5-4.5 g/dL ----Albumin, Serum 4.3 95407601 3.5-5.5 g/dL ----Bilirubin, Total 0.4 78032327 0.0-1.2 mg/dL ----Glucose, Serum 92 27026147 65-99 mg/dL ----A/G Ratio 2.0 [id number] 1.1-2.5 ----ALT (SGPT) 12 70781326 0-32 IU/L ----Alkaline Phosphatase, S 71 86794699 39-117 IU/L ----AST (SGOT) 17 [id number] 0-40 IU/L Summary Purpose eClinicalWorks Submission
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
[2018-07-09 10:14] LABS: INR 0.8 (0.8-1.4); PROTHROMBIN TIME PATIENT 11.4 SEC (12.2-14.7)
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
--- OUTSIDE RECORDS SUMMARY | 2018-07-09 10:14 | XMS REPORT ---
Author SKY Aquino Organization [employer] Address Unknown Phone Unavailable Care Team Providers Care Seo Assistant Name Role Phone SKY ALICIA CP Unavailable Allergies, Adverse Reactions, Alerts Substance Reaction Event Type PredniSONE Headaches, Angry and Increased Appetite Drug Allergy Problems Problem Type Condition Code Onset Dates Condition Status Problem Previous known suicide attempt Z91.5 Active Problem Dry eye H04.129 Active Medications No Known Medications Results No Known Results Summary Purpose [employer] Submission
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
--- OUTSIDE RECORDS SUMMARY | 2018-07-09 10:15 | XMS REPORT | Continuity of Care Document ---
Author Author [facility] Organization [facility] Address Unknown Phone Unavailable Allergies Active Description Code Type Severity Reaction Onset Reported/Identified Relationship to Patient Clinical Status Yes No Known Drug Allergies [id number] Drug Allergy Unknown N/A 04/09/2015 Medications There is no data. Problems Date Dx Coded Attending Type Code Diagnosis Diagnosed By 04/09/2015 MIKE PLUMMER MD Ot F17.210 NICOTINE DEPENDENCE, CIGARETTES, UNCOMPL 04/09/2015 MIKE PLUMMER MD Ot S01.112A LACERATION W/O FB OF LEFT EYELID AND PER 04/09/2015 MIKE PLUMMER MD Ot S01.511A LACERATION WITHOUT FOREIGN BODY OF LIP, 04/09/2015 MIKE PLUMMER MD Ot W54.0XXA BITTEN BY DOG, INITIAL ENCOUNTER 04/09/2015 MIKE PLUMMER MD Ot Y92.[address] IN SINGLE-FAMILY (PRIVATE) HO 04/09/2015 MIKE PLUMMER MD Ot Y99.8 OTHER EXTERNAL CAUSE STATUS 04/09/2015 MIKE PLUMMER MD Ot Z23 ENCOUNTER FOR IMMUNIZATION 06/01/2015 LOYOLA DO, ADELINA L Ot F17.210 NICOTINE DEPENDENCE, CIGARETTES, UNCOMPL 06/01/2015 LOYOLA DO, ADELINA L Ot F32.9 MAJOR DEPRESSIVE DISORDER, SINGLE EPISOD 06/01/2015 LOYOLA DO, ADELINA L Ot F43.9 REACTION TO SEVERE STRESS, UNSPECIFIED 06/01/2015 LOYOLA DO, ADELINA L Ot R00.2 PALPITATIONS 11/05/2015 KANA RAJAN MD (STEVAN) Ot Z02.71 ENCOUNTER FOR DISABILITY DETERMINATION 11/05/2015 KANA RAJAN MD (DDA[place]and) Ot Z02.71 ENCOUNTER FOR DISABILITY DETERMINATION 11/06/2015 KANA RAJAN MD (DDU) Ot Z02.71 ENCOUNTER FOR DISABILITY DETERMINATION 11/06/2015 TRICE ANGUIANO DO Ot F10.129 ALCOHOL ABUSE WITH INTOXICATION, UNSPECI 11/06/2015 SILVIO PAT TRICE Ot F17.210 NICOTINE DEPENDENCE, CIGARETTES, UNCOMPL 11/06/2015 NORM ANGUIANO DOI Ot F32.9 MAJOR DEPRESSIVE DISORDER, SINGLE EPISOD 11/06/2015 NORM ANGUIANO DOI Ot J44.9 CHRONIC OBSTRUCTIVE PULMONARY DISEASE, U 11/06/2015 NORM ANGUIANO DOI Ot M35.00 SICCA SYNDROME, UNSPECIFIED 11/06/2015 SILVIO PAT TRICE Ot T14.91 SUICIDE ATTEMPT 11/06/2015 SILVIO PAT TRICE Ot Y92.[address] [facility] PL[address] IN [facility] NON-INSTITUT (PRIVATE 12/30/2015 KANA RAJAN MD (DDU) Ot Z02.71 ENCOUNTER FOR DISABILITY DETERMINATION 11/18/2017 KANA RAJAN MD (HARPREETU) Ot Z02.71 ENCOUNTER FOR DISABILITY DETERMINATION 11/19/2017 MARILU GARCIA MD, Ot F17.210 NICOTINE DEPENDENCE, CIGARETTES, UNCOMPL 11/19/2017 MARILU GARCIA MD, Ot F32.9 MAJOR DEPRESSIVE DISORDER, SINGLE EPISOD 11/19/2017 MARILU GARCIA MD, Ot J44.9 CHRONIC OBSTRUCTIVE PULMONARY DISEASE, U 11/19/2017 MARILU GARCIA MD, Ot K35.80 UNSPECIFIED ACUTE APPENDICITIS 11/19/2017 MARILU GARCIA MD Ot 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 11/19/2017 MARILU GARCIA MD Ot Z79.899 OTHER LONGTERM (CURRENT) DRUG THERAPY 11/24/2017 MARILU GARCIA MD, Ot F17.210 NICOTINE DEPENDENCE, CIGARETTES, UNCOMPL 11/24/2017 MARILU GARCIA MD, Ot F32.9 MAJOR DEPRESSIVE DISORDER, SINGLE EPISOD 11/24/2017 MARILU GARCIA MD, Ot J44.9 CHRONIC OBSTRUCTIVE PULMONARY DISEASE, U 11/24/2017 MARILU GARCIA MD, Ot K35.80 UNSPECIFIED ACUTE APPENDICITIS 11/27/2017 MARILU GARCIA MD, Ot F17.210 NICOTINE DEPENDENCE, CIGARETTES, UNCOMPL 11/27/2017 MARILU GARCIA MD, Ot F32.9 MAJOR DEPRESSIVE DISORDER, SINGLE EPISOD 11/27/2017 MARILU GARCIA MD, Ot J44.9 CHRONIC OBSTRUCTIVE PULMONARY DISEASE, U 11/27/2017 MARILU GARCIA MD, Ot K35.80 UNSPECIFIED ACUTE APPENDICITIS 11/27/2017 MARILU GARCIA MD Ot Z79.82 LONGTERM (CURRENT) USE OF ASPIRIN 11/27/2017 MARILU GARCIA MD Ot Z79.899 OTHER LONGTERM (CURRENT) DRUG THERAPY 03/21/2018 KANA RAJAN MD (U) Ot Z02.71 ENCOUNTER FOR DISABILITY DETERMINATION Procedures Code Description Performed By Performed On [id number] RESECTION OF APPENDIX, PERCUTANEOUS ENDO 11/19/2017 Results Test Result Range CBC With Differential/Platelet - 02/18/16 14:25 WBC 7.5 x10E3/uL 3.4-10.8 RBC 4.38 x10E6/uL 3.77-5.28 Hemoglobin 13.8 g/dL 11.1-15.9 Hematocrit 39.8 % 34.0-46.6 MCV 91 fL 79-97 MCH 31.5 pg 26.6-33.0 MCHC 34.7 g/dL 31.5-35.7 RDW 13.5 % 12.3-15.4 Platelets 221 x10E3/uL 150-379 Neutrophils 75 % Lymphs 17 % Monocytes 6 % Eos 2 % Basos 0 % Neutrophils (Absolute) 5.6 x10E3/uL 1.4-7.0 Lymphs (Absolute) 1.3 x10E3/uL 0.7-3.1 Monocytes(Absolute) 0.4 x10E3/uL 0.1-0.9 Eos (Absolute) 0.1 x10E3/uL 0.0-0.4 Baso (Absolute) 0.0 x10E3/uL 0.0-0.2 Immature Granulocytes 0 % Immature Grans (Abs) 0.0 x10E3/uL 0.0-0.1 Comp. Metabolic Panel (14) - 02/18/16 14:25 Glucose, Serum 92 mg/dL 65-99 BUN 14 mg/dL 6-24 Creatinine, Serum 0.83 mg/dL 0.57-1.00 eGFR If NonAfricn Am 82 mL/min/1.73 >59 eGFR If Africn Am 94 mL/min/1.73 >59 BUN/Creatinine Ratio 17 9-23 Sodium, Serum 141 mmol/L 134-144 Potassium, Serum 4.3 mmol/L 3.5-5.2 Chloride, Serum 100 mmol/L 97-108 Carbon Dioxide, Total 27 mmol/L 18-29 Calcium, Serum 9.2 mg/dL 8.7-10.2 Protein, Total, Serum 6.4 g/dL 6.0-8.5 Albumin, Serum 4.3 g/dL 3.5-5.5 Globulin, Total 2.1 g/dL 1.5-4.5 A/G Ratio 2.0 1.1-2.5 Bilirubin, Total 0.4 mg/dL 0.0-1.2 Alkaline Phosphatase, S 71 IU/L 39-117 AST (SGOT) 17 IU/L 0-40 ALT (SGPT) 12 IU/L 0-32 TSH - 02/18/16 14:25 TSH 1.190 uIU/mL 0.450-4.500 Sedimentation Rate-Westergren - 02/18/16 14:25 Sedimentation Rate-Westergren 5 mm/hr 0-40 Antinuclear Antibodies, IFA - 02/18/16 14:25 Antinuclear Antibodies, IFA Negative TSH+Free T4 - 10/20/16 16:28 TSH 0.976 uIU/mL 0.450-4.500 T4,Free(Direct) 1.20 ng/dL 0.82-1.77 CBC With Differential/Platelet - 10/20/16 16:28 WBC 4.8 x10E3/uL 3.4-10.8 RBC 4.34 x10E6/uL 3.77-5.28 Hemoglobin 13.1 g/dL 11.1-15.9 Hematocrit 39.9 % 34.0-46.6 MCV 92 fL 79-97 MCH 30.2 pg 26.6-33.0 MCHC 32.8 g/dL 31.5-35.7 RDW 14.1 % 12.3-15.4 Platelets 202 x10E3/uL 150-379 Neutrophils 57 % Lymphs 33 % Monocytes 9 % Eos 1 % Basos 0 % Neutrophils (Absolute) 2.7 x10E3/uL 1.4-7.0 Lymphs (Absolute) 1.6 x10E3/uL 0.7-3.1 Monocytes(Absolute) 0.4 x10E3/uL 0.1-0.9 Eos (Absolute) 0.1 x10E3/uL 0.0-0.4 Baso (Absolute) 0.0 x10E3/uL 0.0-0.2 Immature Granulocytes 0 % Immature Grans (Abs) 0.0 x10E3/uL 0.0-0.1 Comp. Metabolic Panel (14) - 10/20/16 16:28 Glucose, Serum 92 mg/dL 65-99 BUN 16 mg/dL 6-24 Creatinine, Serum 1.11 mg/dL 0.57-1.00 eGFR If NonAfricn Am 57 mL/min/1.73 >59 eGFR If Africn Am 66 mL/min/1.73 >59 BUN/Creatinine Ratio 14 9-23 Sodium, Serum 141 mmol/L 134-144 Potassium, Serum 4.4 mmol/L 3.5-5.2 Chloride, Serum 101 mmol/L 96-106 Carbon Dioxide, Total 25 mmol/L 18-29 Calcium, Serum 9.3 mg/dL 8.7-10.2 Protein, Total, Serum 6.7 g/dL 6.0-8.5 Albumin, Serum 4.5 g/dL 3.5-5.5 Globulin, Total 2.2 g/dL 1.5-4.5 A/G Ratio 2.0 1.2-2.2 Bilirubin, Total 0.3 mg/dL 0.0-1.2 Alkaline Phosphatase, S 64 IU/L 39-117 AST (SGOT) 17 IU/L 0-40 ALT (SGPT) 17 IU/L 0-32 Sedimentation Rate-Westergren - 10/20/16 16:28 Sedimentation Rate-[facility] 2 mm/hr 0-40 C-Reactive Protein, Quant - 10/20/16 16:28 C-Reactive Protein, Quant 0.1 mg/L 0.0-4.9 Complete blood count (CBC) with automated white blood cell (WBC) differential - 11/18/17 15:15 Blood leukocytes automated count (number/volume) 7.0 10*3/uL 4.3-11.0 Blood erythrocytes automated count (number/volume) 4.25 10*6/uL 4.35-5.85 Venous blood hemoglobin measurement (mass/volume) 13.6 g/dL 11.5-16.0 Blood hematocrit (volume fraction) 39 % 35-52 Automated erythrocyte mean corpuscular volume 93 [foz_us] 80-99 Automated erythrocyte mean corpuscular hemoglobin (mass per erythrocyte) 32 pg 25-34 Automated erythrocyte mean corpuscular hemoglobin concentration measurement ( mass/volume) 35 g/dL 32-36 Automated erythrocyte distribution width ratio 13.7 % 10.0-14.5 Automated blood platelet count (count/volume) 219 10*3/uL 130-400 Automated blood platelet mean volume measurement 9.6 [foz_us] 7.4-10.4 Automated blood neutrophils/100 leukocytes 66 % 42-75 Automated blood lymphocytes/100 leukocytes 24 % 12-44 Blood monocytes/100 leukocytes 9 % 0-12 Automated blood eosinophils/100 leukocytes 2 % 0-10 Automated blood basophils/100 leukocytes 0 % 0-10 Blood neutrophils automated count (number/volume) 4.6 10*3 1.8-7.8 Blood lymphocytes automated count (number/volume) 1.7 10*3 1.0-4.0 Blood monocytes automated count (number/volume) 0.6 10*3 0.0-1.0 Automated eosinophil count 0.1 10*3/uL 0.0-0.3 Automated blood basophil count (count/volume) 0.0 10*3/uL 0.0-0.1 Complete urinalysis with reflex to culture - 11/18/17 15:15 Urine color determination YELLOW NRG Urine clarity determination CLEAR NRG Urine pH measurement by test strip 5 5-9 Specific gravity of urine by test strip 1.020 1.016- 1.022 Urine protein assay by test strip, semi-quantitative NEGATIVE NEGATIVE Urine glucose detection by automated test strip NEGATIVE NEGATIVE Erythrocytes detection in urine sediment by light microscopy NEGATIVE NEGATIVE Urine ketones detection by automated test strip NEGATIVE NEGATIVE Urine nitrite detection by test strip NEGATIVE NEGATIVE Urine total bilirubin detection by test strip NEGATIVE NEGATIVE Urine urobilinogen measurement by automated test strip (mass/volume) NORMAL NORMAL Urine leukocyte esterase detection by dipstick NEGATIVE NEGATIVE Automated urine sediment erythrocyte count by microscopy (number/high power field) NONE NRG Automated urine sediment leukocyte count by microscopy (number/high power field ) NONE NRG Bacteria detection in urine sediment by light microscopy NEGATIVE NRG Squamous epithelial cells detection in urine sediment by light microscopy RARE NRG Crystals detection in urine sediment by light microscopy NONE NRG Casts detection in urine sediment by light microscopy NONE NRG Mucus detection in urine sediment by light microscopy NEGATIVE NRG Complete urinalysis with reflex to culture NO NRG Urine drug screening test - 11/18/17 15:15 Urine phencyclidine detection by screening method NEGATIVE NEGATIVE Urine benzodiazepines detection by screening method NEGATIVE NEGATIVE Urine cocaine detection NEGATIVE NEGATIVE Urine amphetamines detection by screening method NEGATIVE NEGATIVE Urine methamphetamine detection by screening method NEGATIVE NEGATIVE Urine cannabinoids detection by screening method NEGATIVE NEGATIVE Urine opiates detection by screening method NEGATIVE NEGATIVE Urine barbiturates detection NEGATIVE NEGATIVE Screening urine tricyclic antidepressants detection NEGATIVE NEGATIVE Urine methadone detection by screening method NEGATIVE NEGATIVE Urine oxycodone detection NEGATIVE NEGATIVE Urine propoxyphene detection NEGATIVE NEGATIVE Comprehensive metabolic panel - 11/18/17 15:15 Serum or plasma sodium measurement (moles/volume) 139 mmol/L 135-145 Serum or plasma potassium measurement (moles/volume) 4.2 mmol/L 3.6-5.0 Serum or plasma chloride measurement (moles/volume) 104 mmol/L 98-107 Carbon dioxide 26 mmol/L 21-32 Serum or plasma anion gap determination (moles/volume) 9 mmol/L 5-14 Serum or plasma urea nitrogen measurement (mass/volume) 23 mg/dL 7-18 Serum or plasma creatinine measurement (mass/volume) 0.79 mg/dL 0.60-1.30 Serum or plasma urea nitrogen/creatinine mass ratio 29 NRG Serum or plasma creatinine measurement with calculation of estimated glomerular filtration rate > NRG Serum or plasma glucose measurement (mass/volume) 99 mg/dL 70-105 Serum or plasma calcium measurement (mass/volume) 9.4 mg/dL 8.5-10.1 Serum or plasma total bilirubin measurement (mass/volume) 0.3 mg/dL 0.1-1.0 Serum or plasma alkaline phosphatase measurement (enzymatic activity/volume) 75 U/L 40-136 Serum or plasma aspartate aminotransferase measurement (enzymatic activity/ volume) 19 U/L 5-34 Serum or plasma alanine aminotransferase measurement (enzymatic activity/volume ) 16 U/L 0-55 Serum or plasma protein measurement (mass/volume) 7.1 g/dL 6.4-8.2 Serum or plasma albumin measurement (mass/volume) 4.4 g/dL 3.2-4.5 Serum or plasma amylase measurement (enzymatic activity/volume) - 11/18/17 15: 15 Serum or plasma amylase measurement (enzymatic activity/volume) 75 U /L 25-125 Lipase - 11/18/17 15:15 Lipase 44 U/L 8-78 Serum or plasma ethanol measurement (mass/volume) - 11/18/17 15:15 Serum or plasma ethanol measurement (mass/volume) < mg/dL <10 Methicillin resistant Staphylococcus aureus (MRSA) screening culture - 18:20 Methicillin resistant Staphylococcus aureus (MRSA) screening culture NEG NRG Encounters ACCT No. Visit Date/Time Discharge Status Pt. Type Provider Facility Loc./Unit Complaint [id number] 11/18/2017 16:28:00 11/19/2017 15:35:00 DIS Outpatient MARILU GARCIA MD [facility] SDC RLQ PAIN/APPENDICITIS [id number] 11/05/2015 23:50:00 11/06/2015 16:00:00 DIS Inpatient TRICE ANGUIANO DO [facility] ICU SUICIDE ATTEMPT IDEATION,MAJOR DEPRESSSION [id number] 10/19/2015 12:45:00 10/19/2015 23:59:59 CLS Outpatient KANA RAJAN MD (DDU) [facility] RT DDU [id number] 06/01/2015 13:51:00 06/01/2015 15:31:00 DIS Emergency ADELINA LOYOLA DO [facility] ER CHEST PAIN [id number] 04/09/2015 00:49:00 04/09/2015 01:43:00 DIS Emergency MIKE PLUMMER MD [facility] ER DOG BITE TO LEFT EYE,LIP INJURY [id number] 10/21/2016 10:09:00 Document Registration [id number] 05/02/2018 08:35:00 05/02/2018 23:59:59 CLS Outpatient SKY ALICIA [facility] [id number] 02/20/2016 07:05:00 Document Registration
[2018-07-09 10:19] LABS: ALANINE AMINOTRANSFERASE 24 U/L (0-55); ALBUMIN 4.8 GM/DL (3.2-4.5); ALKALINE PHOSPHATASE 83 U/L (40-136); BILIRUBIN,TOTAL 0.2 MG/DL (0.1-1.0); BUN/CREATININE RATIO 21; CALCIUM 9.9 MG/DL (8.5-10.1); CARBON DIOXIDE 24 MMOL/L (21-32); CHLORIDE 104 MMOL/L (98-107); CREATININE SERUM 0.89 MG/DL (0.60-1.30); GFR ESTIMATED > 60; GLUCOSE 104 MG/DL (70-105); MAGNESIUM 2.8 MG/DL (1.8-2.4); POTASSIUM 3.7 MMOL/L (3.6-5.0); SODIUM 140 MMOL/L (135-145); TOTAL PROTEIN 7.5 GM/DL (6.4-8.2)
--- NOTE | 2018-07-09 10:24 | Diagnostic Imaging Report ---
INDICATION: Chest pain. TIME OF EXAMINATION: 10:00 AM. COMPARISON: 11/06/2015. FINDINGS: The heart size is normal. The pulmonary vascularity is unremarkable. The lungs are clear. No infiltrate, effusion, or pneumothorax is detected. IMPRESSION: No acute cardiopulmonary process is detected. Dictated by: Dictated on workstation # [id number]
[2018-07-09 10:26] LABS: MYOGLOBIN SERUM 27.7 NG/ML (10.0-92.0)
--- NOTE | 2018-07-09 10:40 | ED Chest Pain ---
General Chief Complaint: Chest Pain Stated Complaint: CHEST PAIN;LEFT ARM NUMBNESS Nursing Triage Note: PT AMBULATED TO ROOM 7 WITH COMPLAINT OF CHEST DISCOMFORT. PT STATES SHE HAS HAD CHEST DISCOMFORT, NECK PAIN, AND ARM TINGLING FOR THE LAST THREE WEEKS. PT STATES SHE HAS ANXIETY AND PANIC ATTACKS, BUT THIS DOES NOT FEEL LIKE HER NORMAL ONES. STATES SYMPTOMS WORSENED THIS AM. PT STATES SHE HAS BEEN UNDER INCREASED STRESS AFTER THERE WAS A IN THE FAMILY A MONTH AGO. STATES SHE "TOOK A BITE" OF XANAX THIS MORNING. Nursing Sepsis Screen: No Definite Risk Source: patient Exam Limitations: no limitations History of Present Illness Date Seen by Provider: Jul 09, 2018 Time Seen by Provider: 09:47 Initial Comments This 53 old woman presents to emergency room with complaints of chest pain and a numbness in the left upper extremity. She woke this morning at 01:00 " feeling weird". She then woke again at 03:00 with a squeezing sensation in her upper chest. 3 weeks ago she reports developing a neck tension and pain that also caused a lower headache, particularly on the left posterior. She has had increased family stress recently. She still complains of a squeezing sensation in her chest at presentation. She has been nauseated without vomiting. Symptoms seem to be worse when lying down. Left hand feels tingly but is not truly numb or weak. She has a prior smoking history and quit a couple years ago. She occasionally has a cigarette when she drinks alcohol which is only a few times a year. She rates her pain is 2/10 at present. She denies any known history of coronary artery disease. Allergies and Home Medications Allergies Coded Allergies: No Known Drug Allergies (Unverified , 04/09/15) Home Medications Aspirin 325 Mg Tablet.dr, 325 MG PO DAILY Prescribed by: MARILU GARCIA on 11/19/17 1039 Fluoxetine HCl 20 Mg Capsule, 20 MG PO DAILY Prescribed by: LEVY WELLINGTON on 11/18/17 180 Hydrocodone Bit/Acetaminophen 1 Ea Tablet, 1 EACH PO Q4H Prescribed by: MARILU GARCIA on 11/19/17 1115 [Mvi] , DAILY Prescribed by: LEVY WELLINGTON on 11/18/17 181 Patient Home Medication List Home Medication List Reviewed: Yes Review of Systems Review of Systems Constitutional: no symptoms reported EENTM: No Symptoms Reported Respiratory: No Symptoms Reported Cardiovascular: See HPI Gastrointestinal: See HPI Genitourinary: No Symptoms Reported Musculoskeletal: see HPI Skin: no symptoms reported Psychiatric/Neurological: See HPI Endocrine: No Symptoms Reported Hematologic/Lymphatic: No Symptoms Reported Past Yzeijel-Bzvbqe-Dfwftr Hx Past Med/Social Hx: Reviewed and Corrections made Patient Social History Alcohol Use: Occasionally Uses Recreational Drug Use: No Smoking Status: Former Smoker Type Used: Cigarettes Former Smoker, Quit: Jun 23, 2015 2nd Hand Smoke Exposure: Yes Recent Foreign Travel: No Contact w/Someone Who Travel: No Recent Infectious Disease Expo: No Immunizations Up To Date Tetanus Booster (TDap): Unknown Seasonal Allergies Seasonal Allergies: Yes Past Medical History Surgeries: Yes (BREAST AUGMENTATION; HYST/BSO; COLONOSCOPY) Adenoidectomy, Breast, Hysterectomy, Oophorectomy, Tonsillectomy Respiratory: Yes Pneumonia, COPD Currently Using CPAP: No Currently Using BIPAP: No Cardiac: No Neurological: Yes ("sjogren's disease"=---SELF DIAGNOSIS) 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 Genitourinary: No Gastrointestinal: Yes Diverticulosis Musculoskeletal: No Endocrine: Yes ("autoimmune disease"--SELF DIAGNOSIS, stated as Sjogren's) HEENT: No Cancer: No Psychosocial: Yes Anxiety, Suicide Attempts, Depression Integumentary: No Blood Disorders: No Family Medical History Reviewed Nursing Family Hx Cardiovascular disease 19 FATHER (a-fib, chf) Diabetes mellitus 19 FATHER (obesity) Hypertension 19 FATHER Physical Exam Vital Signs Vital Signs - First Documented 07/09/18 09:45 Temp 97.1 Pulse 81 Resp 22 B/P (MAP) 132/82 (99) Pulse Ox 99 O2 Delivery Room Air Capillary Refill : Less Than 3 Seconds Height, Weight, BMI Height: 5'5.00" Weight: 135lbs. 0.0oz. 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 Skin: Normal Color, Warm/Dry Procedures/Interventions Suture Size: 6-0 Progress/Results/Core Measures Results/Orders Lab Results Laboratory Tests Test 07/09/18 09:50 07/09/18 13:38 Range/Units White Blood Count 4.9 4.3-11.0 10^3/uL Red Blood Count 4.67 4.35-5.85 10^6/uL Hemoglobin 14.5 11.5-16.0 G/DL Hematocrit 44 35-52 % Mean Corpuscular Volume 94 80-99 FL Mean Corpuscular Hemoglobin 31 25-34 PG Mean Corpuscular Hemoglobin Concent 33 32-36 G/DL Red Cell Distribution Width 13.9 10.0-14.5 % Platelet Count 234 130-400 10^3/uL Mean Platelet Volume 9.6 7.4-10.4 FL Neutrophils (%) (Auto) 66 42-75 % Lymphocytes (%) (Auto) 24 12-44 % Monocytes (%) (Auto) 7 0-12 % Eosinophils (%) (Auto) 2 0-10 % Basophils (%) (Auto) 1 0-10 % Neutrophils # (Auto) 3.3 1.8-7.8 X 10^3 Lymphocytes # (Auto) 1.2 1.0-4.0 X 10^3 Monocytes # (Auto) 0.4 0.0-1.0 X 10^3 Eosinophils # (Auto) 0.1 0.0-0.3 10^3/uL Basophils # (Auto) 0.0 0.0-0.1 10^3/uL Prothrombin Time 11.4 L 12.2-14.7 SEC INR Comment 0.8 0.8-1.4 Activated Partial Thromboplast Time 28 24-35 SEC Sodium Level 140 135-145 MMOL/L Potassium Level 3.7 3.6-5.0 MMOL/L Chloride Level 104 98-107 MMOL/L Carbon Dioxide Level 24 21-32 MMOL/L Anion Gap 12 5-14 MMOL/L Blood Urea Nitrogen 19 H 7-18 MG/DL Creatinine 0.89 0.60-1.30 MG/DL Estimat Glomerular Filtration Rate > 60 BUN/Creatinine Ratio 21 Glucose Level 104 70-105 MG/DL Calcium Level 9.9 8.5-10.1 MG/DL Corrected Calcium 8.5-10.1 MG/DL Magnesium Level 2.8 H 1.8-2.4 MG/DL Total Bilirubin 0.2 0.1-1.0 MG/DL Aspartate Amino Transf (AST/SGOT) 31 5-34 U/L Alanine Aminotransferase (ALT/SGPT) 24 0-55 U/L Alkaline Phosphatase 83 40-136 U/L Myoglobin 27.7 10.0-92.0 NG/ML Troponin I < 0.028 < 0.028 <0.028 NG/ML Total Protein 7.5 6.4-8.2 GM/DL Albumin 4.8 H 3.2-4.5 GM/DL My Orders Orders - KENZIE KEANE MD Ekg Tracing (07/09/18 09:47) Cbc With Automated Diff (07/09/18 09:54) Magnesium (07/09/18 09:54) Chest 1 View, Ap/Pa Only (07/09/18 09:54) Cardiac Profile 1 (07/09/18 09:54) Comprehensive Metabolic Panel (07/09/18 09:54) Myoglobin Serum (07/09/18 09:54) Protime With Inr (07/09/18 09:54) Partial Thromboplastin Time (07/09/18 09:54) O2 (07/09/18 09:54) Monitor-Rhythm Ecg Trace Only (07/09/18 09:54) Saline Lock/Iv-Start (07/09/18 09:54) Aspirin Chewable Tablet (Baby Aspirin Ch (07/09/18 10:00) Nitroglycerin 0.4 Mg Btl 25's (Nitrostat (07/09/18 10:00) Clopidogrel Tablet (Plavix Tablet) (07/09/18 11:30) Metoprolol Succinate (Xl) Tab (Toprol Xl (07/09/18 11:30) Troponin I (07/09/18 13:50) Medications Given in ED Current Medications Medications Dose Ordered Sig/Marine Route Start Time Stop Time Status Last Admin Dose Admin Aspirin 324 mg ONCE ONCE PO 07/09/18 10:00 07/09/18 10:01 DC 07/09/18 10:05 324 MG Clopidogrel Bisulfate 300 mg ONCE ONCE PO 07/09/18 11:30 07/09/18 11:31 DC 07/09/18 11:36 300 MG Nitroglycerin 0.4 mg UD PRN SL 07/09/18 10:00 07/09/18 15:11 DC 07/09/18 10:05 0.4 MG Vital Signs/I&O 07/09/18 09:45 Temp 97.1 Pulse 81 Resp 22 B/P (MAP) 132/82 (99) Pulse Ox 99 O2 Delivery Room Air Blood Pressure Mean: 99 Progress Progress Note : Progress Note As pain workup was pursued after patient assessment. Aspirin was given. Patient's pain resolved for about 15 minutes after nitroglycerin. She then had some mild intermittent pain returned. Case was discussed with Dr. Vanegas who recommended Plavix 300 mg and Toprol-XL. Admission was recommended. However, patient declined admission due to lack of insurance. She did consent to a 4 hour troponin. This was obtained and it was negative. Patient was dismissed AGAINST MEDICAL ADVICE. She was advised to follow-up as soon as possible. Initial ECG Impression Date: Jul 09, 2018 Initial ECG Impression Time: 09:51 Initial ECG Rate: 73 Initial ECG Rhythm: Normal Sinus Initial ECG Intervals: Normal Initial ECG Impression: Normal Comment Normal sinus rhythm with no ST elevation or depression. No abnormal intervals or axis deviation. Diagnostic Imaging Diagonstic Imaging: Xray Plain Films/CT/US/NM/MRI: chest Comments Chest x-ray viewed by me and report reviewed. See report below: NAME: DERIC [facility]PPERSON [facility] REC#: [id number] PT STATUS: REG ER : 1965 PHYSICIAN: KENZIE KEANE MD ADMIT DATE: 07/09/18/ER Draft Date of Exam:07/09/18 CHEST 1 VIEW, AP/PA ONLY INDICATION: Chest pain. TIME OF EXAMINATION: 10:00 AM. COMPARISON: 11/06/2015. FINDINGS: The heart size is normal. The pulmonary vascularity is unremarkable. The lungs are clear. No infiltrate, effusion, or pneumothorax is detected. IMPRESSION: No acute cardiopulmonary process is detected. Dictated on workstation # [id number] Dict: 07/09/18 1020 Trans: 07/09/18 1023 [id number] Interpreted by: RUPAL RODRIGUES MD Departure Impression Primary Impression: Chest pain Qualified Codes: R07.9 - Chest pain, unspecified Disposition: 07 AGAINST MEDICAL ADVICE Condition: Against Medical Advice Departure-Patient Inst. Referrals: SKY ALICIA MD (PCP) Primary Care Physician NERI VANEGAS MD [facility] Patient Instructions: Chest Pain (DC) Add. Discharge Instructions: Take aspirin 81 mg daily. Follow-up with a primary care provider and a air conditioning manager (Dr. Vanegas) as soon as possible. Complete the hospital corporate statistical financial analyst paperwork as soon as possible to help facilitate future health care. Return to care if you have worsening symptoms again. All discharge instructions reviewed with patient and/or family. Voiced understanding. Copy Copies To 1: NERI VANEGAS MD [facility] Copies To 2: SKY ALICIA MD, JOSHUA T MD Jul 09, 2018 10:40
[2018-07-09] MEDS ORDERED: CLOPIDOGREL 300 MG (PLAVIX) TABLET PO ONE (11:30)
[2018-07-09] MEDS ORDERED: meTOproloL SUCCINATE 50 MG (TOPROL XL) TAB PO SCH (11:30)
== END 2018-07-09 15:11 | disposition left against medical advice (07) ==
LOC: EDUNIT# 09:42 → ER 09:43
DX: R07.89 Other chest pain (principal); J44.9 Chronic obstructive pulmonary disease, unspecified; M35.00 Sjogren syndrome, unspecified; F41.9 Anxiety disorder, unspecified; F32.9 Major depressive disorder, single episode, unspecified; Z91.5 Personal history of self-harm; Z79.82 Long term (current) use of aspirin; Z82.49 Family history of ischemic heart disease and other diseases of the circulatory system; Z87.891 Personal history of nicotine dependence; Z90.710 Acquired absence of both cervix and uterus; Z90.89 Acquired absence of other organs; Z87.01 Personal history of pneumonia (recurrent)
CPT/HCPCS: 36415; 71045; 80053; 83735; 83874; 84484; 85025; 85610; 85730; 93005; 93041

== ENCOUNTER 2018-07-16 23:58 | Emergency (ER) | payer SELFPAY ==
[~2018-07-16] VITALS: Ht 165.1 cm; Wt 61.2 kg
[2018-07-17 00:36] LABS: BASOPHILS % (AUTO) 1 % (0-10); EOSINOPHILS # (AUTO) 0.1 10^3/uL (0.0-0.3); EOSINOPHILS % (AUTO) 2 % (0-10); HEMATOCRIT 41 % (35-52); HEMOGLOBIN 13.8 G/DL (11.5-16.0); LYMPHOCYTES # (AUTO) 1.9 X 10^3 (1.0-4.0); LYMPHOCYTES % (AUTO) 39 % (12-44); MEAN CORPUSCULAR HEMOGLOBIN 31 PG (25-34); MEAN CORPUSCULAR HGB CONC 34 G/DL (32-36); MEAN CORPUSCULAR VOLUME 93 FL (80-99); MEAN PLATELET VOLUME 9.5 FL (7.4-10.4); MONOCYTES # (AUTO) 0.5 X 10^3 (0.0-1.0); MONOCYTES % (AUTO) 11 % (0-12); NEUTROPHILS # (AUTO) 2.3 X 10^3 (1.8-7.8); NEUTROPHILS % (AUTO) 48 % (42-75); PLATELET COUNT 192 10^3/uL (130-400); RED CELL DISTRIBUTION WIDTH 13.2 % (10.0-14.5); WHITE BLOOD COUNT 4.8 10^3/uL (4.3-11.0)
[2018-07-17 00:42] LABS: INR 0.8 (0.8-1.4); PROTHROMBIN TIME PATIENT 11.3 SEC (12.2-14.7)
[2018-07-17 00:52] LABS: ALANINE AMINOTRANSFERASE 19 U/L (0-55); ALBUMIN 4.5 GM/DL (3.2-4.5); ALKALINE PHOSPHATASE 70 U/L (40-136); BILIRUBIN,TOTAL 0.3 MG/DL (0.1-1.0); BUN/CREATININE RATIO 24; CALCIUM 10.3 MG/DL (8.5-10.1); CARBON DIOXIDE 24 MMOL/L (21-32); CHLORIDE 104 MMOL/L (98-107); CREATININE SERUM 0.91 MG/DL (0.60-1.30); GFR ESTIMATED > 60; GLUCOSE 109 MG/DL (70-105); MAGNESIUM 2.3 MG/DL (1.8-2.4); POTASSIUM 3.6 MMOL/L (3.6-5.0); SODIUM 142 MMOL/L (135-145); TOTAL PROTEIN 6.8 GM/DL (6.4-8.2)
[2018-07-17] MEDS ORDERED: ASPIRIN 81 MG CHEW (CHILDREN'S ASA) PO ONE (01:00)
[2018-07-17 01:11] LABS: TSH (THYROID ANALYZER) 4.55 UIU/ML (0.35-4.94)
[2018-07-17 01:22] LABS: BILIRUBIN,URINE NEGATIVE (NEGATIVE); CLARITY,URINE CLEAR; COLOR,URINE YELLOW; GLUCOSE, URINE (UA) NEGATIVE (NEGATIVE); KETONES,URINE NEGATIVE (NEGATIVE); LEUKOCYTE ESTERASE ,URINE NEGATIVE (NEGATIVE); NITRITE,URINE NEGATIVE (NEGATIVE); PH,URINE 5 (5-9); PROTEIN,URINE NEGATIVE (NEGATIVE); UROBILINOGEN,URINE NORMAL (NORMAL)
[2018-07-17 01:40] LABS: BACTERIA,URINE NEGATIVE /HPF; SQUAMOUS EPITHELIAL CELL,UR 0-2 /HPF
[2018-07-17 01:46] LABS: AMPHETAMINE SCREEN, URINE NEGATIVE (NEGATIVE); BARBITURATE SCREEN URINE NEGATIVE (NEGATIVE); BENZODIAZEPINES SCREEN URINE NEGATIVE (NEGATIVE); CANNABINOID SCREEN, URINE NEGATIVE (NEGATIVE); COCAINE SCREEN URINE NEGATIVE (NEGATIVE); METHADONE STAT NEGATIVE (NEGATIVE); METHAMPHETAMINE SCREEN URINE S NEGATIVE (NEGATIVE); OPIATE SCREEN URINE NEGATIVE (NEGATIVE); OXYCODONE STAT NEGATIVE (NEGATIVE); PROPOXYPHENE STAT NEGATIVE (NEGATIVE); TRICYCLIC ANTIDEPRESSANTS SCRE NEGATIVE (NEGATIVE)
[2018-07-17] MEDS ORDERED: NS 100 ML (IVPB) BAG IV ONE (02:00)
[2018-07-17] MEDS ORDERED: IOHEXOL 350 MG/ML 150 ML (OMNIPAQUE 350) VIAL IV ONE (02:00)
[2018-07-17] MEDS ORDERED: RECEIVED CONTRAST 20 ML VIAL IV SCH (02:00)
--- NOTE | 2018-07-17 02:26 | ED Cardiac General ---
History of Present Illness General Chief Complaint: Chest Pain Stated Complaint: IRR HEART RATE Nursing Triage Note: TO ED BY POV WITH C/O HEART RACING AND CHEST PRESSURE, SHAKINESS STARTING APPROX 1H BATTERY TESTER AND REPAIRER. SEEN HERE LAST MONDAY FOR CP. CALLED DR. SO OFFICE MONDAY, BUT SAYS HE DIDN'T CALL HER BACK. CHEWED 1 81 MG ASA BATTERY TESTER AND REPAIRER. Source: patient History of Present Illness Date Seen by Provider: Jul 17, 2018 Time Seen by Provider: 00:17 Initial Comments PT ARRIVES VIA POV FROM HOME PT WAS HERE IN ER LAST WEEK FOR C/O CHEST PAIN. WORK UP IN ER WAS NORMAL AT THAT TIME, PT DECLINED ADMIT. PT STATES SHE HAS CONTINUED TO HAVE INTERMITTENT CHEST PAIN--SQUEEZING / TIGHTNESS IN HER CHEST, WITH DIZZINESS ALL WEEK STATES THAT TONIGHT, APPROXIMATELY AN HOUR AGO-AROUND 2300, SHE WAS LAYING DOWN AND COULD HEAR HER HEART BEAT IN HER EARS, THEN SHE STARTED TO HAVE SENSATION THAT HER HEART WAS RACING, THEN SHE STARTED HAVING THE CHEST TIGHTNESS AND FELLING DIZZY, AND WAS VERY SHAKEY. ALSO HAD SOME NAUSEA, NO VOMITING. TOOK 81 MG ASPIRIN PRIOR TO ARRIVAL. HAD TAKEN TYLENOL PM EARLIER TONIGHT TO HELP WITH SLEEP PT STATES SHE HAS BEEN UNDER ALOT OF STRESS--ONGOING FOR YEARS, BUT HAS BEEN WORSE THE LAST FEW MONTHS. WAS STARTED ON PROZAC AND IT HAS HELPED SIGNIFICANTLY, BUT PT HAS CHRONIC PROBLEMS WITH SLEEP AND STATES SHE HASN'T SLEPT MORE THAN A COUPLE OF HOURS EACH NIGHT FOR THE LAST WEEK OR TWO. PT HAS NOT FOLLOWED UP WITH ANYONE SINCE HER RECENT ER VISIT. NTG SL BATTERY TESTER AND REPAIRER: No ASA po BATTERY TESTER AND REPAIRER: Yes (1 81 MG TAB) PCP: [facility]-DR. MARAL WOO Allergies and Home Medications Allergies Coded Allergies: No Known Drug Allergies (Unverified , 04/09/15) Home Medications Aspirin 325 Mg Tablet., 325 MG PO DAILY Prescribed by: MARILU GARCIA on 11/19/17 1039 Fluoxetine HCl 20 Mg Capsule, 20 MG PO DAILY Prescribed by: LEVY WELLINGTON on 11/18/171807 Hydrocodone Bit/Acetaminophen 1 Ea Tablet, 1 EACH PO Q4H Prescribed by: MARILU GARCIA on 11/19/17 1115 [Mvi] , DAILY Prescribed by: LEVY WELLINGTON on 11/18/171810 Patient Home Medication List Home Medication List Reviewed: Yes Review of Systems Review of Systems Constitutional: see HPI; No chills, No diaphoresis; dizziness; No fever EENTM: No Symptoms Reported Respiratory: Denies Cough; Shortness of Air; Denies Wheezing Cardiovascular: See HPI, Chest Pain, Irregular Heart Rate, Lightheadedness, Palpitations; Denies Syncope Gastrointestinal: See HPI; Denies Abdominal Pain, Denies Diarrhea; Nausea; Denies Vomiting Genitourinary: No Symptoms Reported Musculoskeletal: no symptoms reported Skin: no symptoms reported Psychiatric/Neurological: See HPI, Anxiety, Emotional Problems; Denies Headache , Denies Numbness, Denies Paresthesia, Denies Seizure, Denies Tingling, Denies Weakness Endocrine: No Symptoms Reported Hematologic/Lymphatic: No Symptoms Reported Past Tytmzoz-Wqepuq-Arnjsp Hx Patient Social History Alcohol Use: Occasionally Uses (HEAVY AT TIMES, IN THE PAST) Recreational Drug Use: No Smoking Status: Current Someday Smoker (1/2 PPD) Type Used: Cigarettes 2nd Hand Smoke Exposure: Yes Recent Foreign Travel: No Contact w/Someone Who Travel: No Recent Infectious Disease Expo: No Recent Hopitalizations: No Immunizations Up To Date Tetanus Booster (TDap): Unknown Seasonal Allergies Seasonal Allergies: Yes Past Medical History Surgeries: Yes (BREAST AUGMENTATION; HYST/BSO; COLONOSCOPY) Adenoidectomy, Appendectomy, Breast, Hysterectomy, Oophorectomy, Tonsillectomy Respiratory: Yes (PULMONARY NODULES) Pneumonia, COPD Currently Using CPAP: No Currently Using BIPAP: No Cardiac: No Neurological: Yes ("sjogren's disease"=---SELF DIAGNOSIS) 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 Genitourinary: No Gastrointestinal: Yes (DIVERTICULOSIS FOUND ON SCREENING COLONOSCOPY--NO ACUTE DIVERTICULITIS) Diverticulosis Musculoskeletal: No Endocrine: Yes ("autoimmune disease"--SELF DIAGNOSIS, stated as Sjogren's) HEENT: No Cancer: No Psychosocial: Yes Anxiety, Suicide Attempts, Depression Integumentary: No Blood Disorders: No Family Medical History Cardiovascular disease 19 FATHER (a-fib, chf) Diabetes mellitus 19 FATHER (obesity) Hypertension 19 FATHER Physical Exam Vital Signs Vital Signs - First Documented 07/17/18 07/17/18 00:07 02:31 Temp 98.6 Pulse 103 Resp 20 B/P (MAP) 121/80 (94) Pulse Ox 98 O2 Delivery Room Air Capillary Refill : Less Than 3 Seconds Height, Weight, BMI Height: 5'5.00" Weight: 135lbs. 0.0oz. 61.311542dv; 22.8 BMI Method:Stated General Appearance: No Apparent Distress, WD/WN, Anxious, Other (TALKS NON- STOP AT LENGTH ABOUT ALL OF HER STRESS-RELATED ISSUES) Neck: Normal Inspection Respiratory: Normal Breath Sounds, No Accessory Muscle Use, No Respiratory Distress, Other (MID STERNAL TENDERNESS) Cardiovascular: Regular Rate, Rhythm, No Edema, No JVD, No Murmur, Normal Peripheral Pulses Gastrointestinal: Normal Bowel Sounds, No Organomegaly, No Pulsatile Mass, Non Tender, Soft Extremity: Normal Capillary Refill, Normal Inspection, Normal Range of Motion, Non Tender, No Calf Tenderness, No Pedal Edema Neurologic/Psychiatric: Alert, Oriented x3, No Motor/Sensory Deficits, bench hand II- XII Norm as Tested Skin: Normal Color, Warm/Dry Procedures/Interventions Suture Size: 6-0 Progress/Results/Core Measures Results/Orders Lab Results Laboratory Tests Test 07/17/18 00:15 07/17/18 00:27 Range/Units White Blood Count 4.8 4.3-11.0 10^3/uL Red Blood Count 4.40 4.35-5.85 10^6/uL Hemoglobin 13.8 11.5-16.0 G/DL Hematocrit 41 35-52 % Mean Corpuscular Volume 93 80-99 FL Mean Corpuscular Hemoglobin 31 25-34 PG Mean Corpuscular Hemoglobin Concent 34 32-36 G/DL Red Cell Distribution Width 13.2 10.0-14.5 % Platelet Count 192 130-400 10^3/uL Mean Platelet Volume 9.5 7.4-10.4 FL Neutrophils (%) (Auto) 48 42-75 % Lymphocytes (%) (Auto) 39 12-44 % Monocytes (%) (Auto) 11 0-12 % Eosinophils (%) (Auto) 2 0-10 % Basophils (%) (Auto) 1 0-10 % Neutrophils # (Auto) 2.3 1.8-7.8 X 10^3 Lymphocytes # (Auto) 1.9 1.0-4.0 X 10^3 Monocytes # (Auto) 0.5 0.0-1.0 X 10^3 Eosinophils # (Auto) 0.1 0.0-0.3 10^3/uL Basophils # (Auto) 0.0 0.0-0.1 10^3/uL Prothrombin Time 11.3 L 12.2-14.7 SEC INR Comment 0.8 0.8-1.4 Activated Partial Thromboplast Time 27 24-35 SEC Sodium Level 142 135-145 MMOL/L Potassium Level 3.6 3.6-5.0 MMOL/L Chloride Level 104 98-107 MMOL/L Carbon Dioxide Level 24 21-32 MMOL/L Anion Gap 14 5-14 MMOL/L Blood Urea Nitrogen 22 H 7-18 MG/DL Creatinine 0.91 0.60-1.30 MG/DL Estimat Glomerular Filtration Rate > 60 BUN/Creatinine Ratio 24 Glucose Level 109 H 70-105 MG/DL Calcium Level 10.3 H 8.5-10.1 MG/DL Corrected Calcium 9.9 8.5-10.1 MG/DL Magnesium Level 2.3 1.8-2.4 MG/DL Total Bilirubin 0.3 0.1-1.0 MG/DL Aspartate Amino Transf (AST/SGOT) 25 5-34 U/L Alanine Aminotransferase (ALT/SGPT) 19 0-55 U/L Alkaline Phosphatase 70 40-136 U/L Troponin I < 0.028 <0.028 NG/ML B-Type Natriuretic Peptide 26.2 <100.0 PG/ML Total Protein 6.8 6.4-8.2 GM/DL Albumin 4.5 3.2-4.5 GM/DL TSH [place] Testing 4.55 0.35-4.94 UIU/ML Urine Color YELLOW Urine Clarity CLEAR Urine pH 5 5-9 Urine Specific [place] 1.025 H 1.016-1.022 Urine Protein NEGATIVE NEGATIVE Urine Glucose (UA) NEGATIVE NEGATIVE Urine Ketones NEGATIVE NEGATIVE Urine Nitrite NEGATIVE NEGATIVE Urine Bilirubin NEGATIVE NEGATIVE Urine Urobilinogen NORMAL NORMAL MG/DL Urine Leukocyte Esterase NEGATIVE NEGATIVE Urine RBC (Auto) NEGATIVE NEGATIVE Urine RBC NONE /HPF Urine WBC NONE /HPF Urine Squamous Epithelial Cells 0-2 /HPF Urine Crystals NONE /LPF Urine Bacteria NEGATIVE /HPF Urine Casts NONE /LPF Urine Mucus NEGATIVE /LPF Urine Culture Indicated NO Urine Opiates Screen NEGATIVE NEGATIVE Urine Oxycodone Screen NEGATIVE NEGATIVE Urine Methadone Screen NEGATIVE NEGATIVE Urine Propoxyphene Screen NEGATIVE NEGATIVE Urine Barbiturates Screen NEGATIVE NEGATIVE Ur Tricyclic Antidepressants Screen NEGATIVE NEGATIVE Urine Phencyclidine Screen NEGATIVE NEGATIVE Urine Amphetamines Screen NEGATIVE NEGATIVE Urine Methamphetamines Screen NEGATIVE NEGATIVE Urine Benzodiazepines Screen NEGATIVE NEGATIVE Urine Cocaine Screen NEGATIVE NEGATIVE Urine Cannabinoids Screen NEGATIVE NEGATIVE My Orders Orders - DODIE SILVA DO Saline Lock/Iv-Start (07/17/18 00:16) Ekg Tracing (07/17/18 00:16) Monitor-Rhythm Ecg Trace Only (07/17/18 00:16) BNP (07/17/18 00:16) Cbc With Automated Diff (07/17/18 00:16) Comprehensive Metabolic Panel (07/17/18 00:16) Magnesium (07/17/18 00:16) Protime With Inr (07/17/18 00:16) Partial Thromboplastin Time (07/17/18 00:16) Thyroid Analyzer (07/17/18 00:16) Troponin I (07/17/18 00:16) Aspirin Chewable Tablet (Baby Aspirin Ch (07/17/18 01:00) Ct Angio Chest W (07/17/18 01:17) Chest Pa/Lat (2 View) (07/17/18 01:17) Drug Screen Stat (Urine) (07/17/18 01:17) Ua Culture If Indicated (07/17/18 01:17) Iohexol Injection (Omnipaque 350 Mg/Ml 1 (07/17/18 02:00) Received Contrast (Contrast Received) (07/17/18 02:00) Ns (Ivpb) (Sodium Chloride 0.9% Ivpb Bag (07/17/18 02:00) Medications Given in ED Current Medications Medications Dose Ordered Sig/Marine Route Start Time Stop Time Status Last Admin Dose Admin Aspirin 324 mg ONCE ONCE PO 07/17/18 01:00 07/17/18 01:01 DC 07/17/18 01:00 324 MG Iohexol 125 ml ONCE ONCE IV 07/17/18 02:00 07/17/18 02:31 DC 07/17/18 01:56 125 ML Sodium Chloride 80 ml ONCE ONCE IV 07/17/18 02:00 07/17/18 02:31 DC 07/17/18 01:56 80 ML Vital Signs/I&O 07/17/18 07/17/18 07/17/18 00:07 00:07 02:31 Temp 98.6 98.6 Pulse 103 79 Resp 20 20 B/P (MAP) 121/80 (94) 118/66 (83) Pulse Ox 98 O2 Delivery Room Air Room Air Blood Pressure Mean: 94 Progress Progress Note : Progress Note SYMPTOMS RESOLVED WITHOUT TREATMENT NO ARRHYTHMIAS DURING ER STAY VITALS NORMAL DURING ER STAY Initial ECG Impression Date: Jul 17, 2018 Initial ECG Impression Time: 00:12 Initial ECG Rate: 98 Initial ECG Rhythm: Normal Sinus Diagnostic Imaging Comments CXR--NO ACUTE PROCESS, PENDING RADIOLOGIST REVIEW CT CHEST ANGIOGRAM--NO P.E., COPD CHANGES, PULMONARY NODULES AND HEPATIC NODULE- -PER [facility] VIA FAX @ [phone] Reviewed: Reviewed by Me Departure Impression Primary Impression: Chest pain Additional Impressions: Palpitations Anxiety Disposition: 01 HOME, SELF-CARE Condition: Improved Departure-Patient Inst. Referrals: SKY ALICIA MD (PCP/Family) Primary Care Physician Patient Instructions: Anxiety, Adult (DC), Chest Pain (DC), Chest Pain That Is Not Caused by the Heart (DC), Palpitations (DC) Add. Discharge Instructions: HOME, REST TAKE YOUR MEDICATIONS PRESCRIBED FOLLOW UP WITH YOUR DR THIS WEEK FOR FURTHER CARE All discharge instructions reviewed with patient and/or family. Voiced understanding. DODIE SILVA DO Jul 17, 2018 02:26
[2018-07-17 02:31] VITALS: BP 118/66
--- NOTE | 2018-07-17 06:55 | Diagnostic Imaging Report ---
CHEST PA/LAT (2 VIEW) Indication: Irregular heart rate Comparison: 07/09/2018 Findings: No focal pneumonic consolidation, pleural effusion or pneumothorax. Normal heart size and pulmonary vasculature. Impression: No acute cardiopulmonary process. Dictated by: Dictated on workstation # [id number]
--- NOTE | 2018-07-17 07:12 | Diagnostic Imaging Report ---
PROCEDURE: CT angiography of the chest with contrast. TECHNIQUE: Multiple contiguous axial images were obtained through the chest after uneventful bolus administration of intravenous contrast. 2D reconstructed CTA MIP acquisitions were also performed. INDICATION: Irregular heart rate COMPARISON: CT abdomen and pelvis of 11/18/2017 FINDINGS: Vasculature: No pulmonary emboli. No CT evidence of pulmonary hypertension or right ventricular strain. Thoracic aorta is normal in caliber. No aortic dissection or pseudoaneurysm. Heart and mediastinum: Visualized thyroid is normal. No supraclavicular, axillary, or intra-thoracic lymphadenopathy. The heart is normal in size without pericardial effusion. Pleura: No pleural effusion or pneumothorax. Lungs and airway: No endoluminal lesion in the trachea or central bronchi. No pulmonary mass or consolidation. A 6 mm nodule within the superior segment of the right lower lobe (image 68, series 2). No additional pulmonary nodules. Upper abdomen: There is a well-circumscribed 1.4 x 1.1 cm hypodensity within the posterior right hepatic lobe of the liver is stable since prior examination and benign in etiology. Musculoskeletal: No concerning osseous lesion. IMPRESSION: 1. No acute cardiopulmonary process. Specifically, no pulmonary emboli or acute aortic syndrome. 2. Indeterminate 6 mm pulmonary nodule in the right lower lobe. Consider followup CT chest without contrast in 12 months to assess stability. 3. Findings are in agreement with the preliminary report. Dictated by: Dictated on workstation # [id number]
== END 2018-07-17 02:31 | disposition home or self-care (01) ==
LOC: EDUNIT# 23:58 → ER 07-17
DX: R07.9 Chest pain, unspecified (principal); R00.0 Tachycardia, unspecified; F41.9 Anxiety disorder, unspecified; J44.9 Chronic obstructive pulmonary disease, unspecified; M35.00 Sjogren syndrome, unspecified; F32.9 Major depressive disorder, single episode, unspecified; F17.210 Nicotine dependence, cigarettes, uncomplicated; Z79.82 Long term (current) use of aspirin; Z87.19 Personal history of other diseases of the digestive system; Z91.5 Personal history of self-harm; Z82.49 Family history of ischemic heart disease and other diseases of the circulatory system; Z90.49 Acquired absence of other specified parts of digestive tract; Z98.890 Other specified postprocedural states; Z90.89 Acquired absence of other organs; Z90.710 Acquired absence of both cervix and uterus; Z87.01 Personal history of pneumonia (recurrent)
CPT/HCPCS: 36415; 71046; 71275; 80053; 80306; 81000; 83735; 83880; 84443; 84484; 85025; 85610; 85730; 93005; 93041

== ENCOUNTER 2019-08-27 13:25 | Emergency (ER) | payer SELFPAY ==
[~2019-08-27] VITALS: Ht 165 cm; Wt 61.0 kg
[~2019-08-27 13:25] MED LIST changes: -CYAN500T2 PO; +CYAN500T62 PO
[2019-08-27] MEDS ORDERED: ASPIRIN 81 MG CHEW (CHILDREN'S ASA) PO ONE (13:45)
[2019-08-27 13:49] LABS: BASOPHILS % (AUTO) 0 % (0-10); EOSINOPHILS # (AUTO) 0.1 10^3/uL (0.0-0.3); EOSINOPHILS % (AUTO) 2 % (0-10); HEMATOCRIT 39 % (35-52); HEMOGLOBIN 13.3 G/DL (11.5-16.0); LYMPHOCYTES # (AUTO) 1.6 X 10^3 (1.0-4.0); LYMPHOCYTES % (AUTO) 31 % (12-44); MEAN CORPUSCULAR HEMOGLOBIN 31 PG (25-34); MEAN CORPUSCULAR HGB CONC 34 G/DL (32-36); MEAN CORPUSCULAR VOLUME 91 FL (80-99); MEAN PLATELET VOLUME 9.5 FL (7.4-10.4); MONOCYTES # (AUTO) 0.5 X 10^3 (0.0-1.0); MONOCYTES % (AUTO) 9 % (0-12); NEUTROPHILS % (AUTO) 58 % (42-75); PLATELET COUNT 210 10^3/uL (130-400); RED CELL DISTRIBUTION WIDTH 13.5 % (10.0-14.5); WHITE BLOOD COUNT 5.2 10^3/uL (4.3-11.0)
--- NOTE | 2019-08-27 13:53 | ED Chest Pain ---
General Chief Complaint: Chest Pain Stated Complaint: CHEST PAIN Source: patient Exam Limitations: no limitations History of Present Illness Date Seen by Provider: Aug 27, 2019 Time Seen by Provider: 13:28 Initial Comments Here with report of central chest tightness was moderate to significant in intensity that lasted for a few minutes and went away. She's had underlying intermittent to persistent chest tightness over the last week or 2 in the same area with is very mild rating 1 out of 10. Has had some nausea but no vomiting, weakness or sweating. Denies fever or chills. She has been staying in home except for 2 or 3 trips to the grocery store over the last several weeks. No sick contacts. Denies dysuria or diarrhea. Timing/Duration: changing over time, intermittent Severity/Quality: moderate, tightness Location: central Radiation: no radiation Activities at Onset: none Prior CP/Workup: non-cardiac Modifying Factors: improves with rest ASA po LIBERAL ARTS DEAN: No NTG SL LIBERAL ARTS DEAN: No Associated Symptoms: No abdominal pain, No back pain, No diaphoresis, No dizziness; fatigue; No fever/chills; heartburn, nausea/vomiting, shortness of breath; No weakness Allergies and Home Medications Allergies Coded Allergies: No Known Drug Allergies (Unverified , 04/09/15) Home Medications Albuterol Sulfate 1 Puff Puff, 2 PUFF IH Q4H PRN for WHEEZING 1 PUFF = 90 MCG Prescribed by: CHASITY PERSAUD on 08/27/19 1434 Aspirin 325 Mg Tablet.dr, 325 MG PO DAILY Prescribed by: MARILU GARCIA on 11/19/17 1039 Fluoxetine HCl 20 Mg Capsule, 20 MG PO DAILY Prescribed by: LEVY WELLINGTON on 11/18/17 1808 Hydrocodone Bit/Acetaminophen 1 Ea Tablet, 1 EACH PO Q4H Prescribed by: MARILU GARCIA on 11/19/17 1115 [Mvi] , DAILY Prescribed by: LEVY WELLINGTON on 11/18/17 1811 Patient Home Medication List Home Medication List Reviewed: Yes Review of Systems Review of Systems Constitutional: see HPI EENTM: No Symptoms Reported Respiratory: See HPI; Denies Cough Cardiovascular: Chest Pain; Denies Edema, Denies Palpitations Gastrointestinal: No Symptoms Reported Genitourinary: No Symptoms Reported Musculoskeletal: No back pain, No neck pain Skin: no symptoms reported Psychiatric/Neurological: No Symptoms Reported All Other Systems Reviewed Negative Unless Noted: Yes Past Ovzhemr-Azebro-Fjsggv Hx Past Med/Social Hx: Reviewed Nursing Past Med/Soc Hx Patient Social History Alcohol Use: Occasionally Uses Recreational Drug Use: No Smoking Status: Current Someday Smoker Type Used: Cigarettes 2nd Hand Smoke Exposure: Yes Recent Foreign Travel: No Contact w/Someone Who Travel: No Recent Hopitalizations: No Immunizations Up To Date Tetanus Booster (TDap): Unknown Seasonal Allergies Seasonal Allergies: Yes Past Medical History Surgeries: Yes (BREAST AUGMENTATION; HYST/BSO; COLONOSCOPY) Adenoidectomy, Appendectomy, Breast, Hysterectomy, Oophorectomy, Tonsillectomy Respiratory: Yes (PULMONARY NODULES) Pneumonia, COPD Currently Using CPAP: No Currently Using BIPAP: No Cardiac: No Neurological: Yes ("sjogren's disease"=---SELF DIAGNOSIS) Reproductive Disorders: No [employer]ACH[employer] History: Hysterectomy Genitourinary: No Gastrointestinal: Yes (DIVERTICULOSIS FOUND ON SCREENING COLONOSCOPY--NO ACUTE DIVERTICULITIS) Diverticulosis Musculoskeletal: No Endocrine: Yes ("autoimmune disease"--SELF DIAGNOSIS, stated as Sjogren's) HEENT: No Cancer: No Psychosocial: Yes Anxiety, Suicide Attempts, Depression Integumentary: No Blood Disorders: No Family Medical History Reviewed Nursing Family Hx Cardiovascular disease 19 FATHER (a-fib, chf) Diabetes mellitus 19 FATHER (obesity) Hypertension 19 FATHER Physical Exam Vital Signs Vital Signs - First Documented 08/27/19 13:25 Temp 36.4 Pulse 93 Resp 21 B/P (MAP) 122/80 (94) Pulse Ox 97 O2 Delivery Room Air Capillary Refill : Height, Weight, BMI Height: 5'5.00" Weight: 135lbs. 0.0oz. [id number]; 22.8 BMI Method:Stated General Appearance: No Apparent Distress, WD/WN HEENT: PERRL/EOMI, Pharynx Normal Neck: Non Tender Respiratory: Lungs Clear, Normal Breath Sounds Cardiovascular: Regular Rate, Rhythm, No Murmur Gastrointestinal: Non Tender, Soft Extremity: Normal Range of Motion, Non Tender Neurologic/Psychiatric: Alert, Oriented x3 Skin: Normal Color, Warm/Dry Procedures/Interventions Suture Size: 6-0 Progress/Results/Core Measures Results/Orders Lab Results Laboratory Tests Test 08/27/19 13:35 08/27/19 15:20 Range/Units White Blood Count 5.2 4.3-11.0 10^3/uL Red Blood Count 4.28 L 4.35-5.85 10^6/uL Hemoglobin 13.3 11.5-16.0 G/DL Hematocrit 39 35-52 % Mean Corpuscular Volume 91 80-99 FL Mean Corpuscular Hemoglobin 31 25-34 PG Mean Corpuscular Hemoglobin Concent 34 32-36 G/DL Red Cell Distribution Width 13.5 10.0-14.5 % Platelet Count 210 130-400 10^3/uL Mean Platelet Volume 9.5 7.4-10.4 FL Neutrophils (%) (Auto) 58 42-75 % Lymphocytes (%) (Auto) 31 12-44 % Monocytes (%) (Auto) 9 0-12 % Eosinophils (%) (Auto) 2 0-10 % Basophils (%) (Auto) 0 0-10 % Neutrophils # (Auto) 3.0 1.8-7.8 X 10^3 Lymphocytes # (Auto) 1.6 1.0-4.0 X 10^3 Monocytes # (Auto) 0.5 0.0-1.0 X 10^3 Eosinophils # (Auto) 0.1 0.0-0.3 10^3/uL Basophils # (Auto) 0.0 0.0-0.1 10^3/uL Prothrombin Time 11.8 L 12.2-14.7 SEC INR Comment 0.8 0.8-1.4 Activated Partial Thromboplast Time 28 24-35 SEC D-Dimer < 0.27 0.00-0.49 UG/ML Sodium Level 141 135-145 MMOL/L Potassium Level 4.3 3.6-5.0 MMOL/L Chloride Level 106 98-107 MMOL/L Carbon Dioxide Level 22 21-32 MMOL/L Anion Gap 13 5-14 MMOL/L Blood Urea Nitrogen 28 H 7-18 MG/DL Creatinine 1.40 H 0.60-1.30 MG/DL Estimat Glomerular Filtration Rate 39 BUN/Creatinine Ratio 20 Glucose Level 101 70-105 MG/DL Calcium Level 9.4 8.5-10.1 MG/DL Corrected Calcium 9.2 8.5-10.1 MG/DL Magnesium Level 2.3 1.6-2.4 MG/DL Total Bilirubin 0.2 0.1-1.0 MG/DL Aspartate Amino Transf (AST/SGOT) 21 5-34 U/L Alanine Aminotransferase (ALT/SGPT) 17 0-55 U/L Alkaline Phosphatase 56 40-136 U/L Myoglobin 17.2 10.0-92.0 NG/ML Troponin I < 0.028 < 0.028 <0.028 NG/ML Total Protein 7.1 6.4-8.2 GM/DL Albumin 4.3 3.2-4.5 GM/DL My Orders Orders - CHASITY PERSAUD MD Ekg Tracing (08/27/19 13:28) Cbc With Automated Diff (08/27/19 13:36) Magnesium (08/27/19 13:36) Chest 1 View, Ap/Pa Only (08/27/19 13:36) Ekg Tracing (08/27/19 13:36) Comprehensive Metabolic Panel (08/27/19 13:36) Myoglobin Serum (08/27/19 13:36) Protime With Inr (08/27/19 13:36) Partial Thromboplastin Time (08/27/19 13:36) O2 (08/27/19 13:36) Monitor-Rhythm Ecg Trace Only (08/27/19 13:36) Lipid Panel (08/28/19 06:00) Ed Iv/Invasive Line Start (08/27/19 13:36) Fibrin Degradation Products (08/27/19 13:36) Troponin I (08/27/19 13:36) Aspirin Chewable Tablet (Baby Aspirin Ch (08/27/19 13:45) Troponin I (08/27/19 15:20) Medications Given in ED Current Medications Medications Dose Ordered Sig/Marine Route Start Time Stop Time Status Last Admin Dose Admin Aspirin 324 mg ONCE ONCE PO 08/27/19 13:45 08/27/19 13:46 DC 08/27/19 13:46 324 MG Vital Signs/I&O 08/27/19 08/27/19 13:25 13:25 Temp 36.4 Pulse 93 Resp 21 B/P (MAP) 122/80 (94) Pulse Ox 97 O2 Delivery Room Air Progress Progress Note : Progress Note Seen and evaluated. IV, labs, EKG and chest x-ray ordered. ASA 324 mg by mouth ordered. Monitor patient. 1425: Chest pain-free. No acute findings on labs, EKG and chest x-ray. We will repeat troponin in about an hour. Patient does admit to reflux problems. She also has some history of lung concerns like COPD. We will initiate outpatient albuterol MDI and she will initiate omeprazole [id number] providing everything else is okay. Monitor patient. 05/13/01: Repeat troponin negative. Discharged home with return precautions. Patient verbalize understanding instructions and agreement with plan. Initial ECG Impression Date: Aug 27, 2019 Initial ECG Impression Time: 13:34 Initial ECG Rate: 74 Initial ECG Rhythm: Normal Sinus Initial ECG Comparisson: Unchanged Comment Sinus rhythm with normal axis. No evidence of ST elevation NC. Unchanged from previous of 07/17/18. Interpreted by me. Diagnostic Imaging Diagonstic Imaging: Xray Plain Films/CT/US/NM/MRI: chest Comments [facility] [place], [place] NAME: DERIC EPPERSON [facility] REC#: [id number] PT STATUS: REG ER : 1965 PHYSICIAN: CHASITY PERSAUD MD ADMIT DATE: 08/27/19/ER Draft Date of Exam:08/27/19 CHEST 1 VIEW, AP/PA ONLY INDICATION: Chest tightness COMPARISON: 07/17/2018 TECHNIQUE: Single radiograph of the chest dated 08/27/2019. FINDINGS: The cardiac silhouette is within normal limits in size. No significant pulmonary vascular congestion. The lungs are clear of focal pulmonary opacity. No pleural effusion. No pneumothorax. No acute osseous abnormality. IMPRESSION: Stable examination without acute cardiopulmonary abnormality. Dictated on workstation # [id number] Dict: 08/27/19 1401 Trans: 08/27/19 1403 [facility] [id number] Interpreted by: MARIA GUADALUPE BLAKE MD Electronically signed by: Departure Impression Primary Impression: Chest pain Qualified Codes: R07.9 - Chest pain, unspecified Additional Impressions: Bronchitis Acid reflux disease Qualified Codes: K21.9 - Gastro-esophageal reflux disease without esophagitis Disposition: HOME, SELF-CARE Condition: Improved Departure-Patient Inst. Decision time for Depature: 14:27 Referrals: SKY ALICIA MD (PCP/Family) Primary Care Physician Patient Instructions: Chest Pain (DC), Acute Bronchitis, Acid Reflux and Gastroesophageal Reflux Disease in Adults Add. Discharge Instructions: All discharge instructions reviewed with patient and/or family. Voiced understanding. Use inhaler as prescribed or shortness of breath or chest tightness. You should initiate adiz-vve-fwbzmcd omeprazole 20 mg daily. Do this for the next 4 weeks (get a four-week pack). Follow-up with your doctor to discuss further evaluation including possible referral to a surgeon for upper endoscopy especially if not improving. Return for worse pain, weakness, breathing problems, vomiting, sweating or other concerns as needed. Scripts Albuterol Sulfate (PROAIR HFA) 1 Puff Puff 2 PUFF IH Q4H PRN for WHEEZING, #1 INHALER 0 Refills 1 PUFF = 90 MCG Prov: CHASITY PERSAUD MD 08/27/19 Copy Copies To 1: SKY ALICIA MD, TIMOTHY D MD Aug 27, 2019 13:53
[2019-08-27 13:59] LABS: ALBUMIN 4.3 GM/DL (3.2-4.5); INR 0.8 (0.8-1.4); POTASSIUM 4.3 MMOL/L (3.6-5.0); PROTHROMBIN TIME PATIENT 11.8 SEC (12.2-14.7)
[2019-08-27 14:00] LABS: CALCIUM 9.4 MG/DL (8.5-10.1)
[2019-08-27 14:01] LABS: TOTAL PROTEIN 7.1 GM/DL (6.4-8.2)
[2019-08-27 14:03] LABS: BILIRUBIN,TOTAL 0.2 MG/DL (0.1-1.0)
--- NOTE | 2019-08-27 14:04 | Diagnostic Imaging Report ---
INDICATION: Chest tightness COMPARISON: 07/17/2018 TECHNIQUE: Single radiograph of the chest dated 08/27/2019. FINDINGS: The cardiac silhouette is within normal limits in size. No significant pulmonary vascular congestion. The lungs are clear of focal pulmonary opacity. No pleural effusion. No pneumothorax. No acute osseous abnormality. IMPRESSION: Stable examination without acute cardiopulmonary abnormality. Dictated by: Dictated on workstation # [id number]
[2019-08-27 14:05] LABS: CREATININE SERUM 1.4 MG/DL (0.60-1.30)
[2019-08-27 14:08] LABS: MAGNESIUM 2.3 MG/DL (1.6-2.4)
[2019-08-27] MEDS ORDERED: RT-ALBUINH IH (14:34)
--- NOTE | 2019-08-27 15:20 | NUR ---
2ND TROPONIN DRAWN
[2019-08-27 16:17] VITALS: BP 98/50
--- OUTSIDE RECORDS SUMMARY | 2019-08-27 16:44 | XMS REPORT | Continuity of Care Document ---
Demographics Preferred Language Unknown Marital Status Unknown Syn[employer] Affiliation Unknown Race Unknown Ethnic Group Unknown Author Organization Unknown Address Unknown Phone Unavailable Allergies Active Description Code Type Severity Reaction Onset Reported/Identified Relationship to Patient Clinical Status Yes No Known Drug Allergies [id number] Drug Allergy Unknown N/A 04/09/2015 Medications There [...] (PRIVATE) HO 04/09/2015 MIKE PLUMMER MD Ot Y99. 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, CIGARETTES, UNCOMPL 06/01/2015 LOYOLA DO, ADELINA L Ot F32.9 MAJOR DEPRESSIVE DISORDER, SINGLE EPISOD 06/01/2015 LOYOLA DO, ADELINA L Ot F43.9 REACTION TO SEVERE STRESS, UNSPECIFIED 06/01/2015 LOYOLA DO, ADELINA L Ot R00.2 PALPITATIONS 11/05/2015 KANA RAJAN MD (Armand) Ot Z02.71 ENCOUNTER FOR DISABILITY DETERMINATION 11/05/2015 KANA RAJAN MD (HARPREETU) Ot Z02.71 ENCOUNTER FOR DISABILITY DETERMINATION 11/06/2015 KANA RAJAN MD (U) Ot Z02.71 ENCOUNTER FOR DISABILITY DETERMINATION 11/06/2015 TRICE ANGUIANO DO Ot F10.12 9 ALCOHOL ABUSE WITH INTOXICATION, UNSPECI 11/06/2015 TRICE ANGUIANO DO Ot F17.21 0 NICOTINE DEPENDENCE, CIGARETTES, UNCOMPL 11/06/2015 TRICE ANGUIANO DO Ot F32.9 MAJOR DEPRESSIVE DISORDER, SINGLE EPISOD 11/06/2015 NORM ANGUIANO DOI Ot J44.9 CHRONIC OBSTRUCTIVE PULMONARY DISEASE, U 11/06/2015 NORM ANGUIANO DOI Ot M35.00 SICCA SYNDROME, UNSPECIFIED 11/06/2015 NORM ANGUIANO DOI Ot T14.91 SUICIDE ATTEMPT 11/06/2015 TRICE ANGUIANO DO Ot Y92.00 [address] [facility] NON-INSTIT[facility] (PRIVATE 12/30/2015 KANA RAJAN MD (DDU) Ot Z02.71 ENCOUNTER FOR DISABILITY DETERMINATION 11/18/2017 KANA RAJAN MD (DDU) Ot Z02.71 ENCOUNTER FOR DISABILITY DETERMINATION 11/19/2017 MARILU GARCIA MD, Ot F17.21 0 NICOTINE DEPENDENCE, CIGARETTES, UNCOMPL 11/19/2017 MARILU GARCIA MD, Ot F32.9 MAJOR DEPRESSIVE DISORDER, SINGLE EPISOD 11/19/2017 MARILU GARCIA MD, Ot J44.9 CHRONIC OBSTRUCTIVE PULMONARY DISEASE, U 11/19/2017 MARILU GARCIA MD Ot K35.80 UNSPECIFIED ACUTE APPENDICITIS 11/19/2017 MARILU GARCIA MD Ot Z79.82 [address] [employer] (CURRENT) USE OF ASPIRIN 11/19/2017 MARILU GARCIA MD Ot Z79.89 9 OTHER CORRECTION (CURRENT) DRUG THERAPY 11/24/2017 MARILU GARCIA MD Ot F17.21 0 NICOTINE DEPENDENCE, CIGARETTES, UNCOMPL 11/24/2017 MARILU GARCIA MD Ot F32.9 MAJOR DEPRESSIVE DISORDER, SINGLE EPISOD 11/24/2017 MARILU GARCIA MD, Ot J44.9 CHRONIC OBSTRUCTIVE PULMONARY DISEASE, U 11/24/2017 MARILU GARCIA MD Ot K35.80 UNSPECIFIED ACUTE APPENDICITIS 11/27/2017 MARILU GARCIA MD Ot F17.21 0 NICOTINE DEPENDENCE, CIGARETTES, UNCOMPL 11/27/2017 MARILU GARCIA MD, Ot F32.9 MAJOR DEPRESSIVE DISORDER, SINGLE EPISOD 11/27/2017 MARILU GARCIA MD Ot J44.9 CHRONIC OBSTRUCTIVE PULMONARY DISEASE, U 11/27/2017 MARILU GARCIA MD Ot K35.80 UNSPECIFIED ACUTE APPENDICITIS 11/27/2017 MARILU GARCIA MD Ot Z79.[address] [employer] (CURRENT) USE OF ASPIRIN 11/27/2017 RADHA HANSEN, MARILU Ot Z79.89 9 OTHER CORRECTION (CURRENT) DRUG THERAPY 03/21/2018 KANA RAJAN MD (U) Ot Z02.71 ENCOUNTER FOR DISABILITY DETERMINATION 07/11/2018 KENZIE KEANE MD, Ot F32.9 MAJOR DEPRESSIVE DISORDER, SINGLE EPISOD 07/11/2018 KENZIE KEANE MD, Ot F41.9 ANXIETY DISORDER, UNSPECIFIED 07/11/2018 KENZIE KEANE MD, Ot J44.9 CHRONIC OBSTRUCTIVE PULMONARY DISEASE, U 07/11/2018 KENZIE KEANE MD, Ot M35.00 SICCA SYNDROME, UNSPECIFIED 07/11/2018 KENZIE KEANE MD, Ot R07.89 OTHER CHEST PAIN 07/11/2018 KENZIE KENAE MD, Ot Z79.82 CORRECTION (CURRENT) USE OF ASPIRIN 07/11/2018 KENZIE KEANE MD, Ot Z82.49 FAMILY HX OF ISCHEM HEART DIS AND OTH DI 07/11/2018 KENZIE KEANE MD Ot Z87.01 PERSONAL HISTORY OF PNEUMONIA (RECURRENT 07/11/2018 KENZIE KEANE MD, Ot Z87.891 PERSONAL HISTORY OF NICOTINE DEPENDENCE 07/11/2018 KENZIE KEANE MD Ot Z90.710 ACQUIRED ABSENCE OF BOTH CERVIX AND UTER 07/11/2018 KENZIE KEANE MD, Ot Z90.89 ACQUIRED ABSENCE OF OTHER ORGANS 07/11/2018 KENZIE KEANE MD, Ot Z91.5 PERSONAL HISTORY OF SELF-HARM Procedures Code Description Performed By Per formed On [id number] RE SECTION OF APPENDIX, PERCUTANEOUS ENDO 11/19/2017 Results Test Result Range CBC With Differential/Platelet - 6 14:25 WBC 7.5 x10E3/uL 3.4-10.8 RBC 4.38 x10E6/uL 3.77-5.28 Hemoglobin 13.8 g/dL 11.1-15.9 Hematocrit 39.8 % 34.0-46.6 MCV 91 fL 79-97 MCH 31.5 pg 26.6-33.0 MCHC 34.7 g/dL 31.5-35.7 RDW 13.5 % 12.3-15.4 Platelets 221 x10E3/uL 150-379 Neutrophils 75 % Lymphs 17 % Monocytes 6 % Eos 2 % Basos 0 % Neutrophils (Absolute) 5.6 x10E3/uL 1.4- 7.0 Lymphs (Absolute) 1.3 x10E3/uL 0.7-3.1 Monocytes(Absolute) 0.4 x10E3/uL 0.1-0.9 Eos (Absolute) 0.1 x10E3/uL 0.0-0.4 Baso (Absolute) 0.0 x10E3/uL 0.0-0.2 Immature Granulocytes 0 % Immature Grans (Abs) 0.0 x10E3/uL 0.0-0. 1 Comp. Metabolic Panel (14) - 02/18/16 14 :25 Glucose, Serum 92 mg/dL 65-99 BUN 14 [...] mm/hr 0-40 Antinuclear Antibodies, IFA - 02/18/16 1 4:25 Antinuclear Antibodies, IFA Negative TSH+Free T4 - 10/20/16 16:28 TSH 0.976 uIU/mL 0.450-4.500 T4,Free(Direct) 1.20 ng/dL 0.82-1.77 CBC With Differential/Platelet - 7 16:28 WBC 4.8 x10E3/uL 3.4-10.8 RBC 4.34 x10E6/uL 3.77-5.28 Hemoglobin 13.1 g/dL 11.1-15.9 Hematocrit 39.9 % 34.0-46.6 MCV 92 fL 79-97 MCH 30.2 pg 26.6-33.0 MCHC 32.8 g/dL 31.5-35.7 RDW 14.1 % 12.3-15.4 Platelets 202 x10E3/uL 150-379 Neutrophils 57 % Lymphs 33 % Monocytes 9 % Eos 1 % Basos 0 % Neutrophils (Absolute) 2.7 x10E3/uL 1.4- 7.0 Lymphs (Absolute) 1.6 x10E3/uL 0.7-3.1 Monocytes(Absolute) 0.4 x10E3/uL 0.1-0.9 Eos (Absolute) 0.1 x10E3/uL 0.0-0.4 Baso (Absolute) 0.0 x10E3/uL 0.0-0.2 Immature Granulocytes 0 % Immature Grans (Abs) 0.0 x10E3/uL 0.0-0. 1 Comp. Metabolic Panel (14) - 10/20/16 16 :28 Glucose, Serum 92 mg/dL 65-99 BUN 16 [...] 0-32 Sedimentation Rate-Westergren - 10/20/16 16:28 Sedimentation Rate-Spencerergren 2 mm/hr 0-40 C-Reactive Protein, Quant - 10/20/16 16: 28 C-Reactive Protein, Quant 0.1 mg/L 0.0- 4.9 Complete blood count (CBC) with automate d white blood cell (WBC) differential - 11/18/17 15:15 Blood leukocytes automated count (number/volume) 7.0 10*3/uL 4.3-11.0 Blood erythrocytes automated count (number/volume) 4.25 10*6/uL 4.35-5.85 Venous blood hemoglobin measurement (mass/volume) 13.6 g/dL 11.5-16.0 Blood hematocrit (volume fraction) 39 % 35-52 Automated erythrocyte mean corpuscular volume 93 [ foz_us] 80-99 Automated erythrocyte mean corpuscular h emoglobin (mass per erythrocyte) 32 pg 25-34 Automated erythrocyte mean corpuscular h emoglobin concentration measurement (mass/volume) 35 g/dL 32-36 Automated erythrocyte distribution width ratio 13. 7 % 10.0- 14.5 Automated blood platelet count (count/volume) 219 10*3/uL [...] 10*3 1.0-4.0 Blood monocytes automated count (number/volume) 0. 6 10*3 0.0-1.0 Automated eosinophil count 0.1 10*3/uL 0 .0-0.3 Automated blood basophil count (count/volume) 0.0 10*3/uL 0.0-0.1 Complete urinalysis with reflex to cultu re - 11/18/17 15:15 Urine color determination YELLOW NRG Urine clarity determination CLEAR NR G Urine pH measurement by test strip 5 5-9 Specific gravity of urine by test strip 1.020 1.016-1.022 Urine protein assay by test strip, semi-quantitative NEGATIVE NEGATIVE Urine glucose detection by automated test strip NE GATIVE NEGATIVE Erythrocytes detection in urine sediment by light micr oscopy NEGATIVE NEGATIVE Urine ketones detection by automated test strip NE GATIVE NEGATIVE Urine nitrite detection by test strip NEGATIVE NEGATIVE Urine total bilirubin detection by test strip NEGA TIVE NEGATIVE Urine urobilinogen measurement by automated test strip (mass/volume) NORMAL NORMAL Urine leukocyte esterase detection by dipstick NEG ATIVE NEGATIVE Automated urine sediment erythrocyte cou nt by microscopy (number/high power field) NONE NRG Automated urine sediment leukocyte count by microscopy (number/high power field) NONE NRG Bacteria detection in urine sediment by light microsco py NEGATIVE NRG Squamous epithelial cells detection in u rine sediment by light microscopy RARE NRG Crystals detection in urine sediment by light microsco py NONE NRG Casts detection in urine sediment by light microscopy NONE NRG Mucus detection in urine sediment by light microscopy NEGATIVE NRG Complete urinalysis with reflex to culture NO NRG Urine drug screening test - 11/18/17 15: 15 Urine phencyclidine detection by screening method NEGATIVE NEGATIVE Urine benzodiazepines detection by screening method NEGATIVE NEGATIVE Urine cocaine detection NEGATIVE NEGATI VE Urine amphetamines detection by screening method N EGATIVE NEGATIVE Urine methamphetamine detection by screening method NEGATIVE NEGATIVE Urine cannabinoids detection by screening method N EGATIVE NEGATIVE Urine opiates detection by screening method NEGATI VE NEGATIVE Urine barbiturates detection NEGATIVE N EGATIVE Screening urine tricyclic antidepressants detection NEGATIVE NEGATIVE Urine methadone detection by screening method NEGA TIVE NEGATIVE Urine oxycodone detection NEGATIVE NEGA TIVE Urine propoxyphene detection NEGATIVE N EGATIVE Comprehensive metabolic panel - 11/18/17 15:15 Serum or plasma sodium measurement (moles/volume) 139 mmol/L 135-145 Serum or plasma potassium measurement (moles/volume) 4.2 mmol/L 3.6-5.0 Serum or plasma chloride measurement (moles/volume) 104 mmol/L 98-107 Carbon dioxide 26 mmol/L 21-32 Serum or plasma anion gap determination (moles/volume) 9 mmol/L 5-14 Serum or plasma urea nitrogen measurement (mass/volume ) 23 mg/dL 7-18 Serum or plasma creatinine measurement (mass/volume) 0.79 mg/dL 0.60-1.30 Serum or plasma urea nitrogen/creatinine mass ratio 29 NRG Serum or plasma creatinine measurement w ith calculation of estimated glomerular filtration rate > NRG Serum or plasma glucose measurement (mass/volume) 99 mg/dL 70-105 Serum or plasma calcium measurement (mass/volume) 9.4 mg/dL 8.5-10.1 Serum or plasma total bilirubin measurement (mass/volu me) 0.3 mg/dL 0.1-1.0 Serum or plasma alkaline phosphatase ingris surement (enzymatic activity/volume) 75 U/L 40-136 Serum or plasma aspartate aminotransfera se measurement (enzymatic activity/volume) 19 U/L 5-34 Serum or plasma alanine aminotransferase measurement (enzymatic activity/volume) 16 U/L 0-55 Serum or plasma protein measurement (mass/volume) 7.1 g/dL 6.4-8.2 Serum or plasma albumin measurement (mass/volume) 4.4 g/dL 3.2-4.5 Serum or plasma amylase measurement (enz ymatic activity/volume) - 11/18/17 15:15 Serum or plasma amylase measurement (enzymatic activit y/volume) 75 U/L 25-125 Lipase - 11/18/17 15:15 Lipase 44 U/L 8-78 Serum or plasma ethanol measurement (mas s/volume) - 11/18/17 15:15 Serum or plasma ethanol measurement (mass/volume) < mg/dL <10 Methicillin resistant Staphylococcus aur eus (MRSA) screening culture - 11/18/17 18:20 Methicillin resistant Staphylococcus aureus (MRSA) scr eening culture NEG NR Comprehensive metabolic panel - 07/09/18 09:50 Serum or plasma sodium measurement (moles/volume) 140 mmol/L 135-145 Serum or plasma potassium measurement (moles/volume) 3.7 mmol/L 3.6-5.0 Serum or plasma chloride measurement (moles/volume) 104 mmol/L 98-107 Carbon dioxide 24 mmol/L 21-32 Serum or plasma anion gap determination (moles/volume) 12 mmol/L 5-14 Serum or plasma urea nitrogen measurement (mass/volume ) 19 mg/dL 7-18 Serum or plasma creatinine measurement (mass/volume) 0.89 mg/dL 0.60-1.30 Serum or plasma urea nitrogen/creatinine mass ratio 21 NRG Serum or plasma creatinine measurement w ith calculation of estimated glomerular filtration rate > NRG Serum or plasma glucose measurement (mass/volume) 104 mg/dL 70-105 Serum or plasma calcium measurement (mass/volume) 9.9 mg/dL 8.5-10.1 Serum or plasma total bilirubin measurement (mass/volu me) 0.2 mg/dL 0.1-1.0 Serum or plasma alkaline phosphatase ingris surement (enzymatic activity/volume) 83 U/L 40-136 Serum or plasma aspartate aminotransfera se measurement (enzymatic activity/volume) 31 U/L 5-34 Serum or plasma alanine aminotransferase measurement (enzymatic activity/volume) 24 U/L 0-55 Serum or plasma protein measurement (mass/volume) 7.5 g/dL 6.4-8.2 Serum or plasma albumin measurement (mass/volume) 4.8 g/dL 3.2-4.5 Magnesium - 07/09/18 09:50 Magnesium 2.8 mg/dL 1.8-2.4 PT panel in platelet poor plasma by coag ulation assay - 07/09/18 09:50 Prothrombin time (PT) in platelet poor plasma by coagu lation assay 11.4 s 12.2-14.7 INR in platelet poor plasma or blood by coagulation as say 0.8 0.8-1.4 Activated partial thromboplastin time (a PTT) in platelet poor plasma bycoagulation assay - 07/09/18 09:50 Activated partial thromboplastin time (a PTT) in platelet poor plasma bycoagulation assay 28 s 24-35 Serum or plasma troponin i.cardiac measu rement (mass/volume) - 07/09/18 09:50 Serum or plasma troponin i.cardiac measurement (mass/v olume) < ng/mL <0.028 Myoglobin, serum - 07/09/18 09:50 Myoglobin, serum 27.7 ng/mL 10.0-92.0 Serum or plasma troponin i.cardiac measu rement (mass/volume) - 07/09/18 13:38 Serum or plasma troponin i.cardiac measurement (mass/v olume) < ng/mL <0.028 Complete blood count (CBC) with automate d white blood cell (WBC) differential - 07/17/18 00:15 Blood leukocytes automated count (number/volume) 4.8 10*3/uL 4.3-11.0 Blood erythrocytes automated count (number/volume) 4.40 10*6/uL 4.35-5.85 Venous blood hemoglobin measurement (mass/volume) 13.8 g/dL 11.5-16.0 Blood hematocrit (volume fraction) 41 % 35-52 Automated erythrocyte mean corpuscular volume 93 [ foz_us] 80-99 Automated erythrocyte mean corpuscular h emoglobin (mass per erythrocyte) 31 pg 25-34 Automated erythrocyte mean corpuscular h emoglobin concentration measurement (mass/volume) 34 g/dL 32-36 Automated erythrocyte distribution width ratio 13. 2 % 10.0- 14.5 Automated blood platelet count (count/volume) 192 10*3/uL 130-400 Automated blood platelet mean volume measurement 9.5 [foz_us] 7.4-10.4 Automated blood neutrophils/100 leukocytes 48 % 42-75 Automated blood lymphocytes/100 leukocytes 39 % 12-44 Blood monocytes/100 leukocytes 11 % 0-12 Automated blood eosinophils/100 leukocytes 2 % 0-10 Automated blood basophils/100 leukocytes 1 % 0-10 Blood neutrophils automated count (number/volume) 2.3 10*3 1.8-7.8 Blood lymphocytes automated count (number/volume) 1.9 10*3 1.0-4.0 Blood monocytes automated count (number/volume) 0. 5 10*3 0.0-1.0 Automated eosinophil count 0.1 10*3/uL 0 .0-0.3 Automated blood basophil count (count/volume) 0.0 10*3/uL 0.0-0.1 PT panel in platelet poor plasma by coag ulation assay - 07/17/18 00:15 Prothrombin time (PT) in platelet poor plasma by coagu lation assay 11.3 s 12.2-14.7 INR in platelet poor plasma or blood by coagulation as say 0.8 0.8-1.4 Activated partial thromboplastin time (a PTT) in platelet poor plasma bycoagulation assay - 07/17/18 00:15 Activated partial thromboplastin time (a PTT) in platelet poor plasma bycoagulation assay 27 s 24-35 Comprehensive metabolic panel - 07/17/18 00:15 Serum or plasma sodium measurement (moles/volume) 142 mmol/L 135-145 Serum or plasma potassium measurement (moles/volume) 3.6 mmol/L 3.6-5.0 Serum or plasma chloride measurement (moles/volume) 104 mmol/L 98-107 Carbon dioxide 24 mmol/L 21-32 Serum or plasma anion gap determination (moles/volume) 14 mmol/L 5-14 Serum or plasma urea nitrogen measurement (mass/volume ) 22 mg/dL 7-18 Serum or plasma creatinine measurement (mass/volume) 0.91 mg/dL 0.60-1.30 Serum or plasma urea nitrogen/creatinine mass ratio 24 NRG Serum or plasma creatinine measurement w ith calculation of estimated glomerular filtration rate > NRG Serum or plasma glucose measurement (mass/volume) 109 mg/dL 70-105 Serum or plasma calcium measurement (mass/volume) 10.3 mg/dL 8.5-10.1 Serum or plasma total bilirubin measurement (mass/volu me) 0.3 mg/dL 0.1-1.0 Serum or plasma alkaline phosphatase ingris surement (enzymatic activity/volume) 70 U/L 40-136 Serum or plasma aspartate aminotransfera se measurement (enzymatic activity/volume) 25 U/L 5-34 Serum or plasma alanine aminotransferase measurement (enzymatic activity/volume) 19 U/L 0-55 Serum or plasma protein measurement (mass/volume) 6.8 g/dL 6.4-8.2 Serum or plasma albumin measurement (mass/volume) 4.5 g/dL 3.2-4.5 CALCIUM CORRECTED 9.9 mg/dL 8.5-10.1 Magnesium - 07/17/18 00:15 Magnesium 2.3 mg/dL 1.8-2.4 Serum or plasma lithium measurement (mol es/volume) - 07/17/18 00:15 BNP level 26.2 pg/mL <100.0 Serum or plasma troponin i.cardiac measu rement (mass/volume) - 07/17/18 00:15 Serum or plasma troponin i.cardiac measurement (mass/v olume) < ng/mL <0.028 Serum or plasma thyrotropin measurement by detection limit <=0.05 miu/l (units/volume) - 07/17/18 00:15 Serum or plasma thyrotropin measurement by detection limit <=0.05 miu/l (units/volume) 4.55 u[iU]/mL 0.35-4.94 Complete urinalysis with reflex to cultu re - 07/17/18 00:27 Urine color determination YELLOW NRG Urine clarity determination CLEAR NR G Urine pH measurement by test strip 5 5-9 Specific gravity of urine by test strip 1.025 1.016-1.022 Urine protein assay by test strip, semi-quantitative NEGATIVE NEGATIVE Urine glucose detection by automated test strip NE GATIVE NEGATIVE Erythrocytes detection in urine sediment by light micr oscopy NEGATIVE NEGATIVE Urine ketones detection by automated test strip NE GATIVE NEGATIVE Urine nitrite detection by test strip NEGATIVE NEGATIVE Urine total bilirubin detection by test strip NEGA TIVE NEGATIVE Urine urobilinogen measurement by automated test strip (mass/volume) NORMAL NORMAL Urine leukocyte esterase detection by dipstick NEG ATIVE NEGATIVE Automated urine sediment erythrocyte cou nt by microscopy (number/high power field) NONE NRG Automated urine sediment leukocyte count by microscopy (number/high power field) NONE NRG Bacteria detection in urine sediment by light microsco py NEGATIVE NRG Squamous epithelial cells detection in u rine sediment by light microscopy 0-2 NRG Crystals detection in urine sediment by light microsco py NONE NRG Casts detection in urine sediment by light microscopy NONE NRG Mucus detection in urine sediment by light microscopy NEGATIVE NRG Complete urinalysis with reflex to culture NO NRG Urine drug screening test - 07/17/18 00: 27 Urine phencyclidine detection by screening method NEGATIVE NEGATIVE Urine benzodiazepines detection by screening method NEGATIVE NEGATIVE Urine cocaine detection NEGATIVE NEGATI VE Urine amphetamines detection by screening method N EGATIVE NEGATIVE Urine methamphetamine detection by screening method NEGATIVE NEGATIVE Urine cannabinoids detection by screening method N EGATIVE NEGATIVE Urine opiates detection by screening method NEGATI VE NEGATIVE Urine barbiturates detection NEGATIVE N EGATIVE Screening urine tricyclic antidepressants detection NEGATIVE NEGATIVE Urine methadone detection by screening method NEGA TIVE NEGATIVE Urine oxycodone detection NEGATIVE NEGA TIVE Urine propoxyphene detection NEGATIVE N EGATIVE Encounters ACCT No. Visit Date/Time Discharge Status Pt. Type Provider Facility Loc./Unit Complaint [id number] 10/21/2016 10:09:00 Document Registration [id number] 02/20/2016 07:05:00 Document Registration [id number] 07/17/2018 00:00:00 019 02:31:00 DIS Emergency DODIE SILVA DO a [facility] ER IRR HEART RATE [id number] 07/09/2018 09:43:00 15:11:00 DIS Outpatient KENZIE KEANE MD Via [facility] ER CHEST PAIN;LEFT ARM NUMBNESS [id number] 11/18/2017 16:28:00 018 15:35:00 DIS Outpatient MARILU GARCIA MD Via [facility] RLQ PAIN/APPENDICITIS [id number] 11/05/2015 23:50:00 16:00:00 DIS Inpatient TRICE ANGUIANO DO, V [facility] ICU SUICIDE ATTEMPT IDEAT ION,MAJOR DEPRESSSION [id number] 10/19/2015 12:45:00 016 23:59:59 CLS Outpatient KANA RAJAN MD (DDU) [facility] RT DDU [id number] 06/01/2015 13:51:00 15:31:00 DIS Emergency ADELINA LOYOLA DO [facility] ER CHEST PAIN [id number] 04/09/2015 00:49:00 015 01:43:00 DIS Emergency MIKE PLUMMER MD [facility] ER DOG BITE TO LEFT EYE,LI P INJURY [id number] 08/27/2019 13:27:[address] Emergency CHASITY PERSAUD MD [facility] ER CHEST PAIN
== END 2019-08-27 16:17 | disposition home or self-care (01) ==
LOC: EDUNIT# 13:25 → ER 13:27
DX: R07.9 Chest pain, unspecified (principal); J44.0 Chronic obstructive pulmonary disease with (acute) lower respiratory infection; J40 Bronchitis, not specified as acute or chronic; K21.9 Gastro-esophageal reflux disease without esophagitis; Z79.82 Long term (current) use of aspirin; Z79.899 Other long term (current) drug therapy; F17.210 Nicotine dependence, cigarettes, uncomplicated; F41.9 Anxiety disorder, unspecified; F32.9 Major depressive disorder, single episode, unspecified
CPT/HCPCS: 36415; 71045; 80053; 83735; 83874; 84484; 85025; 85379; 85610; 85730; 93041